=== PATIENT | female | born 1985 | race Caucasian/White ===

== ENCOUNTER → 2016-10-30 | Outpatient (CLI) | payer BC, OTHER | LOC: OD 11:00 | PROVIDERS: ATTEND Obstetrics & Gynecology | DX: N97.9 Female infertility, unspecified (principal) | CPT/HCPCS: 36415; 84144 ==

== ENCOUNTER → 2017-03-19 | Outpatient (CLI) | payer BC ==
--- NOTE | 2017-03-19 10:27 | RADIOLOGY REPORT (SQ) ---
EXAM DESCRIPTION: HYSTEROSALPINGOGRAM; HYSTERO CATH/INJECTION COMPLETED DATE/TIME: 03/19/2017 9:50 am REASON FOR STUDY: INFERTILITY N97.9 FEMALE INFERTILITY, UNSPECIFIED COMPARISON: None. PROCEDURE: PRE-PROCEDURE: Procedure was explained to the patient. She was told to expect cramping du ring the procedure, and possible spotting post procedure. PROCEDURE: The cervix was prepped in sterile fashion. Under direct visual inspection, the cervix was cannulated with the hysterosalpingogram catheter and contrast injected. TECHNIQUE: Temporal fluoroscopic images acquired during the procedure stored to PACS. FLUOROSCOPY TIME: Less than 2 seconds 9 digital radiographic images saved to PACS. LIMITATIONS: None. FINDINGS: UTERUS: No identified anomalies. No synechia. RIGHT ADNEXA: Normal size fallopian tube. Free spill of contrast into the peritoneal cavity. LEFT ADNEXA: Normal size fallopian tube. Free spill of contrast into the peritoneal cavity. POST PROCEDURE: The patient tolerated the procedure with no adverse effects. IMPRESSION: NORMAL HYSTEROSALPINGOGRAM. COMMENT: Quality ID [id number]: Final reports for procedures using fluoroscopy that document radiation exp osure indices, or exposure time and number of fluorographic images (if radiation exposure indices are not available) TECHNICAL DOCUMENTATION: JOB ID: [id number] [employer]- All Rights Reserved
== END ==
LOC: RAD 09:17
PROVIDERS: ATTEND Nurse Practitioner Primary Care
DX: N97.9 Female infertility, unspecified (principal)
CPT/HCPCS: 58340; 74740

== ENCOUNTER → 2017-05-03 | Outpatient (CLI) | payer BC | LOC: OD 09:03 | PROVIDERS: ATTEND Nurse Practitioner Primary Care | DX: Z31.83 Encounter for assisted reproductive fertility procedure cycle (principal) | CPT/HCPCS: 36415; 84702 ==

== ENCOUNTER → 2017-07-05 | Outpatient (CLI) | payer BC ==
[2017-07-06 13:45] LABS: ESTRADIOL 303.9 pg/mL (.); PROGESTERONE 16.1 ng/mL (.)
== END ==
LOC: OD 11:55
PROVIDERS: ATTEND Nurse Practitioner Primary Care
DX: Z32.00 Encounter for pregnancy test, result unknown (principal)
CPT/HCPCS: 36415; 82670; 84144; 84702

== ENCOUNTER → 2017-07-09 | Outpatient (CLI) | payer BC | LOC: OD 10:31 | PROVIDERS: ATTEND Obstetrics & Gynecology | DX: N91.2 Amenorrhea, unspecified (principal) | CPT/HCPCS: 36415; 84702 ==

== ENCOUNTER 2018-02-09 10:44 | Outpatient (CLI) | payer BC ==
--- NOTE | 2018-02-09 11:42 | Non Stress Test Report ---
Non Stress Test Datetime Report Generated by CPN: 02/09/2018 11:42 DEMOGRAPHIC EGA NST: 36.0 INDICATION Indication for Study: Diabetes Mellitus; Chronic Hypertension VITAL SIGNS Temperature - NST: 98.7 Pulse - NST: 90 RESP - NST: 18 NBPSYS NST: 124 NBPDIA NST: 70 MONITORING Monitor Explained: Monitor Explained; Test Explained; Patient Verbalized Understanding Time on Monitor: 02/09/2018 10:55 Time off Monitor: 02/09/2018 11:35 NST Duration: 40 NST INTERVENTIONS NST Interventions: PO Hydration Physician Notified NST: H [place] CNM BABY A: [id number] BABY A Movement : Present Contraction Frequency : none FHR Baseline : 135 Accelerations : 15X15 Decelerations : None Variability : Moderate 6-25bpm NST Review: Meets Criteria for Reactive NST NST Review and Verified By : John Scott RNC NST Results: Reactive NST REPORT Report Trigger: Send Report
== END 2018-02-09 11:42 | disposition home or self-care (01) ==
LOC: LC 10:44
PROVIDERS: ATTEND Obstetrics & Gynecology Gynecology
PROC: 4A1HXCZ Monitoring of Products of Conception, Cardiac Rate, External Approach (ICD-10-PCS; principal; 2018-02-09)
DX: O10.913 Unspecified pre-existing hypertension complicating pregnancy, third trimester (principal); O24.419 Gestational diabetes mellitus in pregnancy, unspecified control; Z3A.36 36 weeks gestation of pregnancy
CPT/HCPCS: 59025

== ENCOUNTER 2018-02-18 12:02 | Outpatient (CLI) | payer BC ==
[2018-02-18 13:05] LABS: APPEARANCE,URINE CLEAR; BILIRUBIN,URINE NEGATIVE (NEGATIVE); COLOR,URINE STRAW; GLUCOSE, URINE NEGATIVE (NEGATIVE); KETONES,URINE NEGATIVE (NEGATIVE); LEUKOCYTE ESTERASE,URINE NEGATIVE (NEGATIVE); NITRITE,URINE NEGATIVE (NEGATIVE); PROTEIN,URINE NEGATIVE (NEGATIVE); URINE SPECIFIC GRAVITY 1.003; UROBILINOGEN,URINE NEGATIVE mg/dL (<2.0)
[2018-02-18 13:31] LABS: URINE CREATININE 13.9 mg/dL (16-327); URINE PROTEIN 13.8 mg/dL (<12)
[2018-02-18 13:43] LABS: URINE AMPHETAMINES SCREEN NEGATIVE; URINE BARBITURATES SCREEN NEGATIVE; URINE BENZODIAZEPINES SCREEN NEGATIVE; URINE COCAINE SCREEN NEGATIVE; URINE MARIJUANA (THC) SCREEN NEGATIVE; URINE METHADONE SCREEN NEGATIVE; URINE PHENCYCLIDINE SCREEN NEGATIVE
--- NOTE | 2018-02-18 13:51 | Non Stress Test Report ---
Non Stress Test Datetime Report Generated by CPN: 02/18/2018 13:51 DEMOGRAPHIC EGA NST: 37.2 INDICATION Indication for Study: Chronic Hypertension MONITORING Monitor Explained: Monitor Explained; Test Explained; Patient Verbalized Understanding Time on Monitor: 02/18/2018 12:39 NST INTERVENTIONS NST Interventions: PO Hydration Physician Notified NST: Dr. Catherine BABY A: [id number] BABY A Movement : Present Contraction Frequency : 0 FHR Baseline : 135 Accelerations : 15X15 Decelerations : None Variability : Moderate 6-25bpm NST Review: Meets Criteria for Reactive NST NST Review and Verified By : D Bellavance RNC NST REPORT Report Trigger: Send Report
[2018-02-18 13:53] LABS: ABSOLUTE LYMPHOCYTES (AUTO) 1.4 10^3/uL (0.5-4.7); ABSOLUTE MONOCYTES (AUTO) 0.7 10^3/uL (0.1-1.4); BASOPHILS % (AUTO) 0.2 % (0-2); EOSINOPHILS % (AUTO) 0.4 % (0-6); HEMATOCRIT 36.3 % (36.0-47.0); HEMOGLOBIN 12.2 g/dL (12.0-15.5); MEAN CORPUSCULAR HEMOGLOBIN 28.1 pg (27.0-33.4); MEAN CORPUSCULAR HGB CONC 33.5 g/dL (32.0-36.0); MEAN CORPUSCULAR VOLUME 84 fl (80-97); MONOCYTES % (AUTO) 7.1 % (3-13); PLATELET COUNT 184 10^3/uL (150-450); RED BLOOD COUNT 4.33 10^6/uL (3.72-5.28); RED CELL DISTRIBUTION WIDTH 17.6 % (11.5-14.0); SEGMENTED NEUTROPHILS % (AUTO) 78.3 % (42-78); TOTAL CELLS COUNTED % (AUTO) 100 %; WHITE BLOOD COUNT 10.3 10^3/uL (4.0-10.5)
[2018-02-18 14:29] LABS: ALANINE AMINOTRANSFERASE 24 U/L (9-52); ALBUMIN 3.2 g/dL (3.5-5.0); ALKALINE PHOSPHATASE 126 U/L (38-126); ANION GAP 10 (5-19); ASPARTATE AMINO TRANSFERASE 14 U/L (14-36); BLOOD UREA NITROGEN 10 mg/dL (7-20); CALCIUM 9.6 mg/dL (8.4-10.2); CARBON DIOXIDE 24 mmol/L (22-30); CHLORIDE 107 mmol/L (98-107); GLUCOSE 69 mg/dL (75-110); LDH 352 U/L (313-618); POTASSIUM 4.5 mmol/L (3.6-5.0); SODIUM 140.7 mmol/L (137-145); TOTAL PROTEIN 6.2 g/dL (6.3-8.2)
[2018-02-18 14:36] LABS: BILIRUBIN,TOTAL < 0.1 mg/dL (0.2-1.3)
== END 2018-02-18 14:45 | disposition home or self-care (01) ==
LOC: LC 12:02
PROVIDERS: ATTEND Student in an Organized Health Care Education/Training Program
PROC: 4A1HXCZ Monitoring of Products of Conception, Cardiac Rate, External Approach (ICD-10-PCS; principal; 2018-02-18)
DX: O10.913 Unspecified pre-existing hypertension complicating pregnancy, third trimester (principal); Z3A.37 37 weeks gestation of pregnancy
CPT/HCPCS: 36415; 59025; 80053; 80307; 81005; 82570; 83615; 84156; 84550; 85025

== ENCOUNTER → 2018-02-19 | Outpatient (CLI) | payer BC ==
[2018-02-19 18:26] LABS: 24 HOUR URINE PROTEIN RESULT 241 mg/day (42-225); URINE PROTEIN 10.4 mg/dL (<12)
== END ==
LOC: LC 17:38
PROVIDERS: ATTEND Obstetrics & Gynecology
PROC: 4A1HXCZ Monitoring of Products of Conception, Cardiac Rate, External Approach (ICD-10-PCS; principal; 2018-02-19)
DX: O10.913 Unspecified pre-existing hypertension complicating pregnancy, third trimester (principal); O24.419 Gestational diabetes mellitus in pregnancy, unspecified control; Z3A.37 37 weeks gestation of pregnancy
CPT/HCPCS: 59025; 84156

== ENCOUNTER 2018-02-21 17:14 | Outpatient (CLI) | payer BC ==
[2018-02-21 18:08] LABS: APPEARANCE,URINE CLEAR; BILIRUBIN,URINE NEGATIVE (NEGATIVE); COLOR,URINE STRAW; GLUCOSE, URINE NEGATIVE (NEGATIVE); KETONES,URINE TRACE mg/dL (NEGATIVE); LEUKOCYTE ESTERASE,URINE NEGATIVE (NEGATIVE); NITRITE,URINE NEGATIVE (NEGATIVE); PROTEIN,URINE NEGATIVE (NEGATIVE); URINE SPECIFIC GRAVITY 1.006; UROBILINOGEN,URINE NEGATIVE mg/dL (<2.0)
[2018-02-21 18:23] LABS: URINE AMPHETAMINES SCREEN NEGATIVE; URINE BARBITURATES SCREEN NEGATIVE; URINE BENZODIAZEPINES SCREEN NEGATIVE; URINE COCAINE SCREEN NEGATIVE; URINE MARIJUANA (THC) SCREEN NEGATIVE; URINE METHADONE SCREEN NEGATIVE; URINE PHENCYCLIDINE SCREEN NEGATIVE
[2018-02-21 18:25] LABS: UR PRO/CREAT RATIO RESULT 0.5 mg/mg (0.0-0.2); URINE CREATININE 27.5 mg/dL (16-327); URINE PROTEIN 13.1 mg/dL (<12)
[2018-02-21 18:34] LABS: ABSOLUTE MONOCYTES (AUTO) 0.8 10^3/uL (0.1-1.4); ABSOLUTE NEUT (AUTO) 8.5 10^3/uL (1.7-8.2); BASOPHILS % (AUTO) 0.2 % (0-2); EOSINOPHILS % (AUTO) 0.3 % (0-6); HEMOGLOBIN 12.3 g/dL (12.0-15.5); LYMPHOCYTES % (AUTO) 17.7 % (13-45); MEAN CORPUSCULAR HEMOGLOBIN 28.1 pg (27.0-33.4); MEAN CORPUSCULAR HGB CONC 33.3 g/dL (32.0-36.0); MEAN CORPUSCULAR VOLUME 85 fl (80-97); MONOCYTES % (AUTO) 7.1 % (3-13); PLATELET COUNT 199 10^3/uL (150-450); RED BLOOD COUNT 4.38 10^6/uL (3.72-5.28); RED CELL DISTRIBUTION WIDTH 17.9 % (11.5-14.0); SEGMENTED NEUTROPHILS % (AUTO) 74.7 % (42-78); TOTAL CELLS COUNTED % (AUTO) 100 %; WHITE BLOOD COUNT 11.3 10^3/uL (4.0-10.5)
[2018-02-21 18:53] LABS: ALANINE AMINOTRANSFERASE 23 U/L (9-52); ALBUMIN 3.4 g/dL (3.5-5.0); ALKALINE PHOSPHATASE 137 U/L (38-126); ANION GAP 12 (5-19); ASPARTATE AMINO TRANSFERASE 14 U/L (14-36); BILIRUBIN,DIRECT 0.2 mg/dL (0.0-0.4); BILIRUBIN,TOTAL 0.2 mg/dL (0.2-1.3); BLOOD UREA NITROGEN 9 mg/dL (7-20); CALCIUM 9.5 mg/dL (8.4-10.2); CARBON DIOXIDE 21 mmol/L (22-30); CHLORIDE 106 mmol/L (98-107); GLUCOSE 68 mg/dL (75-110); LDH 357 U/L (313-618); POTASSIUM 4.2 mmol/L (3.6-5.0); SODIUM 138.6 mmol/L (137-145); TOTAL PROTEIN 6.2 g/dL (6.3-8.2); URIC ACID 5.3 mg/dL (2.5-6.2)
--- NOTE | 2018-02-21 19:46 | Non Stress Test Report ---
Non Stress Test Datetime Report Generated by CPN: 02/21/2018 19:46 DEMOGRAPHIC EGA NST: 37.5 EGA NST: 37.3 INDICATION Indication for Study: Chronic Hypertension; Ordered by Provider Indication for Study: Ordered by Provider MONITORING Monitor Explained: Monitor Explained; Test Explained; Patient Verbalized Understanding Monitor Explained: Monitor Explained; Test Explained; Patient Verbalized Understanding Time on Monitor: 02/21/2018 17:41 Time on Monitor: 02/19/2018 17:55 Time off Monitor: 02/21/2018 19:34 Time off Monitor: 02/19/2018 18:32 NST Duration: 113 NST Duration: 37 NST INTERVENTIONS NST Interventions: PO Hydration; Reposition Patient NST Interventions: PO Hydration Physician Notified NST: Dr. Prather BABY A: [id number] BABY A Movement : Present Movement : Present Contraction Frequency : none Contraction Frequency : none FHR Baseline : 130 FHR Baseline : 135 Accelerations : 15X15 Accelerations : 15X15 Decelerations : None Variability : Moderate 6-25bpm Variability : Moderate 6-25bpm NST Review: Meets Criteria for Reactive NST NST Review: Meets Criteria for Reactive NST NST Review: Meets Criteria for Reactive NST NST Review and Verified By : Pushpa Ann RN NST Review and Verified By : Jamal Garcia RN NST Results: Reactive NST Results: Reactive NST REPORT Report Trigger: Send Report
== END 2018-02-21 19:41 | disposition home or self-care (01) ==
LOC: LC 17:14
PROVIDERS: ATTEND Obstetrics & Gynecology Gynecology
PROC: 4A1HXCZ Monitoring of Products of Conception, Cardiac Rate, External Approach (ICD-10-PCS; principal; 2018-02-21)
DX: O10.913 Unspecified pre-existing hypertension complicating pregnancy, third trimester (principal); Z3A.37 37 weeks gestation of pregnancy
CPT/HCPCS: 36415; 59025; 80053; 80307; 81001; 82570; 83615; 84156; 84550; 85025

== ENCOUNTER 2018-02-24 17:52 | Inpatient (IN) | payer BC ==
[2018-02-24] MEDS ORDERED: RINGERS SOLUTION,LACTATED 1,000 ML IV PRN (18:25)
[2018-02-24] MEDS ORDERED: RINGERS SOLUTION,LACTATED 300 ML IV ONE (18:25)
[2018-02-24 18:35] LABS: ABSOLUTE LYMPHOCYTES (AUTO) 1.7 10^3/uL (0.5-4.7); ABSOLUTE MONOCYTES (AUTO) 0.8 10^3/uL (0.1-1.4); BASOPHILS % (AUTO) 0.3 % (0-2); EOSINOPHILS % (AUTO) 0.3 % (0-6); HEMATOCRIT 36.8 % (36.0-47.0); HEMOGLOBIN 12.3 g/dL (12.0-15.5); LYMPHOCYTES % (AUTO) 14.8 % (13-45); MEAN CORPUSCULAR HGB CONC 33.4 g/dL (32.0-36.0); MEAN CORPUSCULAR VOLUME 84 fl (80-97); MONOCYTES % (AUTO) 6.9 % (3-13); PLATELET COUNT 210 10^3/uL (150-450); RED BLOOD COUNT 4.39 10^6/uL (3.72-5.28); RED CELL DISTRIBUTION WIDTH 17.7 % (11.5-14.0); SEGMENTED NEUTROPHILS % (AUTO) 77.7 % (42-78); TOTAL CELLS COUNTED % (AUTO) 100 %; WHITE BLOOD COUNT 11.6 10^3/uL (4.0-10.5)
[2018-02-24 18:36] LABS: APPEARANCE,URINE CLEAR; BILIRUBIN,URINE NEGATIVE (NEGATIVE); COLOR,URINE YELLOW; GLUCOSE, URINE NEGATIVE (NEGATIVE); KETONES,URINE TRACE mg/dL (NEGATIVE); LEUKOCYTE ESTERASE,URINE NEGATIVE (NEGATIVE); NITRITE,URINE NEGATIVE (NEGATIVE); PROTEIN,URINE NEGATIVE (NEGATIVE); URINE SPECIFIC GRAVITY 1.014; UROBILINOGEN,URINE NEGATIVE mg/dL (<2.0)
[2018-02-24] MEDS ORDERED: DINOPROSTONE 10 MG VAGINAL INSERT.SR ONE (18:48)
[2018-02-24 18:51] LABS: URINE AMPHETAMINES SCREEN NEGATIVE; URINE BARBITURATES SCREEN NEGATIVE; URINE BENZODIAZEPINES SCREEN NEGATIVE; URINE COCAINE SCREEN NEGATIVE; URINE MARIJUANA (THC) SCREEN NEGATIVE; URINE METHADONE SCREEN NEGATIVE; URINE PHENCYCLIDINE SCREEN NEGATIVE
[2018-02-24 18:54] LABS: ALANINE AMINOTRANSFERASE 17 U/L (9-52); ALBUMIN 3.5 g/dL (3.5-5.0); ALKALINE PHOSPHATASE 138 U/L (38-126); ANION GAP 11 (5-19); ASPARTATE AMINO TRANSFERASE 15 U/L (14-36); BILIRUBIN,DIRECT 0.1 mg/dL (0.0-0.4); BILIRUBIN,TOTAL 0.1 mg/dL (0.2-1.3); BLOOD UREA NITROGEN 15 mg/dL (7-20); CALCIUM 10.2 mg/dL (8.4-10.2); CARBON DIOXIDE 22 mmol/L (22-30); CHLORIDE 107 mmol/L (98-107); GLUCOSE 105 mg/dL (75-110); LDH 354 U/L (313-618); POTASSIUM 4.4 mmol/L (3.6-5.0); SODIUM 139.6 mmol/L (137-145); TOTAL PROTEIN 6.6 g/dL (6.3-8.2); URIC ACID 5.6 mg/dL (2.5-6.2)
[2018-02-24] MEDS: DINOPROSTONE 10 MG VAGINAL INSERT.SR PV PRN (18:58)
[2018-02-24] MEDS ORDERED: ZOLPIDEM TARTRATE 5 MG TABLET PO ONE (22:32)
[2018-02-24] MEDS ORDERED: ZOLPIDEM TARTRATE 5 MG TABLET ONE (22:35)
--- NOTE | 2018-02-25 01:26 | Admission Physical ---
Datetime Report Generated by CPN: 02/25/2018 01:26 CURRENT ADMISSION Chief Complaint: Scheduled Induction of Labor Indication for Induction: Gestational HTN; Maternal Diabetes Admit Impression : Term, Intrauterine ; Induction of Labor Admit Plan: Admit to Unit; Initiate Labor Induction Protocol ALLERGIES Medication Allergies: Yes Medication Allergies: aspirin (02/24/2018) Latex: No Latex Allergies Food Allergies: N/A Environmental Allergies: N/A OBSTETRICAL HISTORY EDC: 03/09/2018 00:00 : 1 Para: 0 Term: 0 : 0 SAB: 0 IAB: 0 Ectopic: 0 Livin Cesareans: 0 VBACs: 0 Multiple Births: 0 Gestational Diabetes: Yes Rh Sensitization: No Incompetent Cervix: No CHITO: No Infertility: Yes ART Treatment: Yes Uterine Anomaly: No IUGR: No Hx Previous C/S: No Macrosomia: No Hx Loss/Stillborn: No PIH: No Hx : No Placenta Previa/Abruption: No Depression/PP Depression: No PTL/PROM: No Post Hemorrhage: No Current Procedures: Ultrasound; NST Obstetrical History Comments: G1- current: GDM metformin GHTN on labatelol. Infertility clomid, IUI SEE RECORDS Alcohol: No Marijuana : No Cocaine: No Other Illicit Drugs: No Cigarettes: Never Smoker. [id number] MEDICAL HISTORY Diabetes: No Blood Transfusion: No Pulmonary Disease (Asthma, TB): No Breast Disease: No Hypertension: Yes Mechanic Helper Surgery: Yes Heart Disease: No Hosp/Surgery: No Autoimmune Disorder: No Anesthetic Complications: Yes Kidney Disease: No Abnormal Pap Smear: No Neuro/Epilepsy: No Psychiatric Disorders: Yes Other Medical Diseases: No Hepatitis/Liver Disease: No Significant Family History: No Varicosities/Phlebitis: No Trauma/Violence : No Thyroid Dysfunction: No Medical History Comments: hormones premenstrual disorder, mild anxiety. Pt. states that she was awake during colonoscopy and endoscopy after getting propofol. Failed IUI, IVF= thispregnancy not a result of INFECTIOUS HISTORY Gonorrhea: No Genital Herpes: No Chlamydia: No Tuberculosis: No Syphilis: No Hepatitis: No HIV/AIDS Exposure: No Rash or Viral Illness: No HPV: No PHYSICAL EXAM General: Normal HEENT: Normal Neurologic: Normal Thyroid: Normal Heart: Normal Lungs: Normal Breast: Deferred Back: Normal Abdomen: Normal Genitourinary Exam: Normal Extremities: Normal DTRs: Normal Pelvic Type: Adequate Vital Signs: Reviewed VAGINAL EXAM Dilatation: 1 Effacement: thick MEMBRANES Pooling: Negative Membranes: Intact FETUS A EGA: 38.2 Monitoring: External US FHR- Baseline: 130 Variability: Moderate 6-25bpm Accelerations: 15X15 Decelerations: None FHR Category: Category I Presentation: Vertex Admit Comment: efw 6-7 lbs PLANS FOR LABOR AND DELIVERY Labor and Delivery: None Pain Management: Natural Other Pain Management Plans: see how it goes Feeding Preference: Breast Benefit of Breast Feed Discussed: Yes Circumcision: Yes INFORMED CONSENT Signature: with User ID: [email or web address]
[2018-02-25] MEDS ORDERED: DIPHENHYDRAMINE HCL 25 MG CAPSULE ONE (01:38)
[2018-02-25] MEDS ORDERED: DIPHENHYDRAMINE HCL 50 MG CAPSULE PO ONE (01:39)
[2018-02-25] MEDS ORDERED: MISOPROSTOL 0.1 MG TABLET PO ONE (08:18)
[2018-02-25] MEDS ORDERED: MISOPROSTOL 0.1 MG TABLET ONE ×3 (08:23→16:32)
[2018-02-25] MEDS ORDERED: MISOPROSTOL 0.1 MG TABLET PV ONE (08:30)
--- NOTE | 2018-02-25 09:58 | L&D Progress Notes ---
PROGRESS NOTES Datetime Report Generated by CPN: 02/25/2018 09:58 PROGRESS NOTE Impression: Reassuring Heart Rate Plan: Continue Present Management; Cervical Ripening Vital Signs : Reviewed Comment: Sitting on bith ball, starting to feel uc's, CAt 1 strip, Irreg uc's VAGINAL EXAM Dilatation: 1 Effacement: thick MEMBRANES Pooling: Negative Membranes: Intact Membranes: Intact FETUS A Monitoring: External US Decelerations: None : 38.0 Presentation: Vertex SIGNATURE SIGNATURE: [id number] SIGNATURE: [id number] SIGNATURE: [id number] SIGNATURE: [id number] SIGNATURE: [id number] Assignment: Sha Prather MD Signature: with User ID: [email or web address] : with User ID: [email or web address]
[2018-02-25 11:39] LABS: ALANINE AMINOTRANSFERASE 23 U/L (9-52); ALBUMIN 3.6 g/dL (3.5-5.0); ALKALINE PHOSPHATASE 136 U/L (38-126); ANION GAP 10 (5-19); ASPARTATE AMINO TRANSFERASE 15 U/L (14-36); BILIRUBIN,DIRECT 0.1 mg/dL (0.0-0.4); BILIRUBIN,TOTAL 0.2 mg/dL (0.2-1.3); BLOOD UREA NITROGEN 11 mg/dL (7-20); CALCIUM 9.6 mg/dL (8.4-10.2); CARBON DIOXIDE 23 mmol/L (22-30); CHLORIDE 107 mmol/L (98-107); GLUCOSE 93 mg/dL (75-110); LDH 371 U/L (313-618); POTASSIUM 4.3 mmol/L (3.6-5.0); SODIUM 140.1 mmol/L (137-145); TOTAL PROTEIN 6.7 g/dL (6.3-8.2)
[2018-02-25] MEDS: MISOPROSTOL 0.1 MG TABLET PO SCH ×2 (12:40→18:08)
--- NOTE | 2018-02-25 13:59 | L&D Progress Notes ---
PROGRESS NOTES Datetime Report Generated by CPN: 02/25/2018 13:59 PROGRESS NOTE Impression: Reassuring Heart Rate Plan: Continue Present Management; Cervical Ripening Vital Signs : Reviewed; Within Normal Limits Comment: Cat 1 strip, irreg uc's FETUS A FHR - Baseline: 150 Monitoring: External US Variability: Moderate 6-25bpm Accelerations: 15X15 Decelerations: None FHR Category: Category I FETUS C SIGNATURE: [id number];[id number];10,[id number] Assignment: Sha Prather MD Signature: with User ID: Sandra : with User ID: Sandra
[2018-02-25] MEDS ORDERED: MISOPROSTOL 0.2 MG TABLET PV SCH (14:00)
--- NOTE | 2018-02-25 14:31 | L&D Progress Notes ---
PROGRESS NOTES Datetime Report Generated by CPN: 02/25/2018 14:31 PROGRESS NOTE Impression: Reassuring Heart Rate Procedures: Sterile Vag Exam Vital Signs : Reviewed; Within Normal Limits Comment: Pt called and said she thought her water broke, cervix unchanged, scant bloody show, Irreg uc's, pt anxious, trying to relax, Cat 1 strip FETUS A Monitoring: External US FHR Category: Category I FETUS C SIGNATURE: [id number] Assignment: Sha Prather MD Signature: with User ID: Sandra : with User ID: Sandra
[2018-02-25] MEDS ORDERED: OXYTOCIN/NORMAL SALINE 20 UNIT/1,000 ML RTUINJ IV PRN (17:40)
[2018-02-25] MEDS ORDERED: OXYTOCIN/NORMAL SALINE 20 UNIT/1,000 ML RTUINJ ONE (17:54)
[2018-02-25] MEDS ORDERED: NALBUPHINE HCL INJ 10 MG/1 ML AMPULE INJ ONE (18:02)
[2018-02-25] MEDS ORDERED: PROMETHAZINE HCL INJ 25 MG/1 ML VIAL IV PRN (18:02)
[2018-02-25] MEDS ORDERED: PROMETHAZINE HCL INJ 25 MG/1 ML VIAL ONE (18:06)
[2018-02-25] MEDS ORDERED: NALBUPHINE HCL INJ 10 MG/1 ML AMPULE ONE (18:07)
[2018-02-25] MEDS: DINOPROSTONE 10 MG VAGINAL INSERT.SR PV PRN (18:08)
[2018-02-25] MEDS ORDERED: LABETALOL HCL 200 MG TABLET ONE (20:08)
[2018-02-25] MEDS ORDERED: FENTANYL CITRATE INJ/PF 100 MCG/2 ML AMPUL ONE (21:35)
[2018-02-25 21:36] LABS: ABSOLUTE LYMPHOCYTES (AUTO) 1.9 10^3/uL (0.5-4.7); ABSOLUTE MONOCYTES (AUTO) 1.1 10^3/uL (0.1-1.4); ABSOLUTE NEUT (AUTO) 11.8 10^3/uL (1.7-8.2); BASOPHILS % (AUTO) 0.2 % (0-2); EOSINOPHILS % (AUTO) 0.1 % (0-6); HEMATOCRIT 38.3 % (36.0-47.0); HEMOGLOBIN 12.7 g/dL (12.0-15.5); LYMPHOCYTES % (AUTO) 12.9 % (13-45); MEAN CORPUSCULAR HEMOGLOBIN 27.9 pg (27.0-33.4); MEAN CORPUSCULAR HGB CONC 33.2 g/dL (32.0-36.0); MEAN CORPUSCULAR VOLUME 84 fl (80-97); MONOCYTES % (AUTO) 7.2 % (3-13); PLATELET COUNT 197 10^3/uL (150-450); RED BLOOD COUNT 4.55 10^6/uL (3.72-5.28); RED CELL DISTRIBUTION WIDTH 17.6 % (11.5-14.0); SEGMENTED NEUTROPHILS % (AUTO) 79.6 % (42-78); TOTAL CELLS COUNTED % (AUTO) 100 %; WHITE BLOOD COUNT 14.8 10^3/uL (4.0-10.5)
[2018-02-25] MEDS ORDERED: PHENYLEPHRINE HCL INJ/PF 10 MG/1 ML SDV ONE (21:36)
[2018-02-25] MEDS ORDERED: EPHEDRINE SULFATE INJ 50 MG/1 ML AMPULE ONE (21:36)
[2018-02-25] MEDS ORDERED: LIDOCAINE 1.5%/EPINEPHRINE INJ-PF 30 ML SDV ONE (21:36)
[2018-02-25] MEDS ORDERED: BUPIVACAINE HCL 0.25 % INJ/PF (2.5 MG/1 ML) 30 ML VIAL ONE (21:36)
[2018-02-25] MEDS ORDERED: FENTANYL/BUPIVACAINE/NS/PF 300 MCG/150 ML RTUINJ EPI ONE (21:36)
[2018-02-25] MEDS ORDERED: LABETALOL HCL 200 MG TABLET PO SCH (22:00)
[2018-02-25 22:01] LABS: ALANINE AMINOTRANSFERASE 29 U/L (9-52); ALBUMIN 3.4 g/dL (3.5-5.0); ALKALINE PHOSPHATASE 144 U/L (38-126); ANION GAP 11 (5-19); ASPARTATE AMINO TRANSFERASE 15 U/L (14-36); BILIRUBIN,DIRECT 0.2 mg/dL (0.0-0.4); BILIRUBIN,TOTAL 0.3 mg/dL (0.2-1.3); BLOOD UREA NITROGEN 11 mg/dL (7-20); CALCIUM 9.4 mg/dL (8.4-10.2); CARBON DIOXIDE 23 mmol/L (22-30); CHLORIDE 106 mmol/L (98-107); GLUCOSE 79 mg/dL (75-110); SODIUM 139.6 mmol/L (137-145); TOTAL PROTEIN 6.4 g/dL (6.3-8.2)
[2018-02-26] MEDS ORDERED: OXYTOCIN/NORMAL SALINE 0 UNIT/0 ML RTUINJ ONE (01:59)
[2018-02-26] MEDS ORDERED: MISOPROSTOL 0.2 MG TABLET ONE (01:59)
[2018-02-26] MEDS ORDERED: LIDOCAINE 1% INJ-PF (10 MG/ML) 30 ML SDV ONE (01:59)
[2018-02-26] MEDS ORDERED: DIBUCAINE 1% OINTMENT 28 GM TP PRN (03:21)
[2018-02-26] MEDS ORDERED: PROMETHAZINE HCL INJ 25 MG/1 ML VIAL IV PRN (03:21)
[2018-02-26] MEDS ORDERED: PROMETHAZINE HCL 25 MG TABLET PO PRN (03:21)
[2018-02-26] MEDS ORDERED: BENZOCAINE/MENTHOL AEROSOL SPRAY 56 ML TOP PRN (03:21)
[2018-02-26] MEDS ORDERED: MAGNESIUM HYDROXIDE SUSP 30 ML UDCUP PO PRN (03:21)
[2018-02-26] MEDS ORDERED: ZOLPIDEM TARTRATE 5 MG TABLET PO PRN (03:21)
[2018-02-26] MEDS ORDERED: PSEUDOEPHEDRINE HCL 30 MG TABLET PO PRN (03:21)
[2018-02-26] MEDS ORDERED: GLYCERIN/WITCH HAZEL LEAF 1 EACH MED..PAD TP PRN (03:21)
[2018-02-26] MEDS ORDERED: ACETAMINOPHEN WITH CODEINE #3 TABLET PO PRN (03:21)
[2018-02-26] MEDS ORDERED: PROMETHAZINE HCL 25 MG SUPP.RECT PR PRN (03:21)
[2018-02-26] MEDS ORDERED: NA PHOS,M-B/NA PHOS,DI-BA (ADULT) 133 ML ENEMA PR PRN (03:21)
[2018-02-26] MEDS ORDERED: ACETAMINOPHEN 650 MG SUPP.RECT PR PRN (03:21)
[2018-02-26] MEDS ORDERED: OXYTOCIN/NORMAL SALINE 20 UNIT/1,000 ML RTUINJ IV PRN (03:21)
[2018-02-26] MEDS ORDERED: DIPH/PERTUSS(ACELL)/TETANUS VAC/PF 0.5 ML SYR (>=10YO) IM PRN (03:21)
[2018-02-26] MEDS ORDERED: MEASLES,MUMPS&RUBELLA VACC/PF 0.5 ML VIAL SUBCUT PRN (03:21)
[2018-02-26] MEDS ORDERED: DIPHENHYDRAMINE HCL 25 MG CAPSULE PO PRN (03:21)
--- NOTE | 2018-02-26 03:25 | PDOC DELIVERY SUMMARY ---
Delivery Summary - Maternal Risk Factors: Gestational Diabetes, Induced HTN Fluids: Clear - Delivery Labor: Augmentation Presentation: Vertex Uterine Contraction Monitoring: External Support Person Present: Yes Nuchal Cord: Yes - shoulder Delivery of Placenta Date: 02/26/18 - Medications Type of Anesthesia:: Epidural
--- NOTE | 2018-02-26 03:35 | Warning Signs in Babies ---
VOD Warning Signs Datetime Report Generated by [facility]: 02/26/2018 03:35 VOD#608 -Warning Signs in Babies: Needs to be viewed. (02/09/2018 11:08:Afshan Vaughan RN)
--- NOTE | 2018-02-26 04:41 | Delivery Summary ---
Del Sum A-C Datetime Report Generated by CPN: 02/26/2018 04:41 DELIVERY PERSONNEL DELIVERY PERSONNEL: [id number] Delivery Doctor:: Sha Prather MD Labor and Delivery Nurse:: Afshan Vaughan RNhealth advocate Nurse:: Claudia Farrell RN Supervisor Filtration:: Chelo Triplett RN Nursery Nurse:: Angelique Martins RN Nursery Nurse:: anthony Taylor Tech/TECHNICIAN BIOLOGICAL HEALTH: July Burgos, ST MATERNAL INFORMATION Delivery Anesthesia: Epidural Medications After Delivery: Pitocin Bolus-Please Comment; Pitocin Drip 20 Units/1000ml NSS Meds After Delivery Comment: ns with pitocin 20 units/liter ivf Maternal Complications: Other Complication Details: CHTN, GDMA2 LABOR SUMMARY EDC: 03/09/2018 00:00 No. Babies in Womb: 1 Attempted: No Labor Anesthesia: Epidural LABOR INFORMATION Reason for Induction: Chronic Primary/Essential HTN; Maternal Diabetes Onset of Labor: 02/25/2018 16:40 Complete Dilatation: 02/26/2018 02:32 Cervical Ripening Agents: Cervidil; Cytotec @ Oxytocin: Induction Group B Beta Strep: Negative Antibiotics # of Doses: 0 Antibiotics Time of Last Dose: n/a Steroids Given: None Reason Steroids Not Administered: Not Applicable MEMBRANES Membranes Rupture Method: Spontaneous Rupture of Membranes: 02/25/2018 16:40 Length of Rupture (hr): 10.50 Amniotic Fluid Color: Clear Amniotic Fluid Amount: Small Amniotic Fluid Odor: Normal STAGES OF LABOR Stage 1 hr: 9 Stage 1 min: 52 Stage 2 hr: 0 Stage 2 min: 38 Stage 3 hr: 0 Stage 3 min: 3 Total Time in Labor hr: 10 Total Time in Labor min: 33 VAGINAL DELIVERY Episiotomy: None Laceration #1: None Laceration Extension #1: N/A Laceration Repair: Not Applicable Sponge Count Correct: N/A Sharps Count Correct: N/A CSECTION DELIVERY Primary Indication: N/A Secondary Indication: N/A CSection Incision: N/A BABY A INFORMATION Infant Delivery Date/Time: 02/26/2018 03:10 Method of Delivery: Vaginal Born in Route : No : N/A Forceps: N/A Vacuum Extraction: N/A Shoulder Dystocia : No PRESENTATION/POSITION BABY A Presentation: Cephalic Cephalic Presentation: Vertex Vertex Position: Right Occipital Anterior Breech Presentation: N/A PLACENTA INFORMATION BABY A Placenta Delivery Time : 02/26/2018 03:13 Placenta Method of Delivery: Spontaneous Placenta Status: Delivered SCORES BABY A Heart Rate 1 min: >100 bpm Resp Effort 1 min: Good Cry Reflex Irritability 1 min: Cough or Sneeze or Pulls Away Muscle Tone 1 min: Active Motion Color 1 min: Blue/Pale Resuscitation Effort 1 min: Tactile Stimulation SCORE 1 MIN: 8 Heart Rate 5 min: >100 bpm Resp Effort 5 min: Good Cry Reflex Irritability 5 min: Cough or Sneeze or Pulls Away Muscle Tone 5 min: Active Motion Color 5 min: Body Pole [place], Extremities Blue Resuscitation Effort 5 min: Tactile Stimulation SCORE 5 MIN: 9 INFORMATION BABY A Gestational Age at Delivery: 38.3 Gestational Status: Early Term- 37- 38.6 Weeks Infant Outcome : Liveborn Infant Condition : Stable Sex: Male IDENTIFICATION BABY A Infant Verification Date/Time: 02/26/2018 03:23 ID Band Number: [id number] Mother's Name Verified: Yes RN Verifying Infant: Jose Farrell. RN Additional Verifying Personnel: Ralph, K. RN WEIGHT/LENGTH BABY A Birthweight (gm): 2810 Weight (lb): 6 Weight (oz): 3 Length (in): 19.00 Infant Length (cm): 48.26 CORD INFORMATION BABY A No. Cord Vessels: 3 Nuchal Cord : N/A Cord Blood Taken: Yes-For Storage (Mom's Blood type +) Infant Suction: Mouth; Nose ASSESSMENT BABY A Infant Complications: Multiple Late Decels; Multiple Variable Decels Physical Findings at Delivery: Caput Succedaneum Respirations: Appears Normal Skin to Skin: Yes Skin to Skin Time (min): 20 Transferred To: Nursery BABY B INFORMATION : N/A SIGNATURES Signature: with User ID: [email or web address]
[2018-02-26] MEDS ORDERED: IBUPROFEN 800 MG TABLET ONE (05:08)
[2018-02-26] MEDS: IBUPROFEN 800 MG TABLET PO SCH ×3 (05:11→21:54)
--- NOTE | 2018-02-26 08:40 | PDOC PROGRESS REPORT ---
Subjective-OB Progress Note for:: 02/26/18 Subjective: Doing well, holding baby, hsb in room, Physical Exam (OB) Vital Signs: Temp Pulse Resp BP Pulse Ox 98.6 F 93 18 136/74 H 98 02/26/18 05:36 02/26/18 05:36 02/26/18 05:36 02/26/18 05:36 02/26/18 05:36 Intake & Output 02/25/18 02/26/18 02/27/18 06:59 06:59 06:59 Weight 115.3 kg 63.8 kg - Lochia Lochia Amount: Small 10-25 ml Lochia Color: Rubra/Red - Abdomen Description: Soft, Round Hernia Present: No Fundal Description: Firm, Midline Fundal Height: u/u - u/2 Objective-Diagnostic Laboratory: 02/25/18 21:25 02/25/18 21:25 02/25/18 02/25/18 02/25/18 10:59 21:25 21:25 WBC 14.8 H RBC 4.55 Hgb 12.7 Hct 38.3 MCV 84 MCH 27.9 MCHC 33.2 RDW 17.6 H Plt Count 197 Seg Neutrophils % 79.6 H Lymphocytes % 12.9 L Monocytes % 7.2 Eosinophils % 0.1 Basophils % 0.2 Absolute Neutrophils 11.8 H Absolute Lymphocytes 1.9 Absolute Monocytes 1.1 Absolute Eosinophils 0.0 Absolute Basophils 0.0 Sodium 140.1 139.6 Potassium 4.3 4.0 Chloride 107 106 Carbon Dioxide 23 23 Anion Gap 10 11 BUN 11 11 Creatinine 0.50 L 0.55 Est GFR ( Amer) > 60 > 60 Est GFR (Non-Af Amer) > 60 > 60 Glucose 93 79 Uric Acid 5.0 Calcium 9.6 9.4 Total Bilirubin 0.2 0.3 AST 15 15 ALT 23 29 Alkaline Phosphatase 136 H 144 H Total Protein 6.7 6.4 Albumin 3.6 3.4 L Assessment and Plan(PN) - Assessment and Plan (1) Gestational diabetes mellitus (GDM) Qualifiers: Gestational diabetes mellitus control: diet-controlled Trimester: third trimester Qualified Code(s): O24.410 - Gestational diabetes mellitus in , diet controlled Is this a current diagnosis for this admission?: Yes (2) Chronic hypertension affecting Is this a current diagnosis for this admission?: Yes - Time Spent with Patient Time with patient: Less than 15 minutes Medications reviewed and adjusted accordingly: Yes - Disposition Within: within 48 hours
[2018-02-26] MEDS: SENNOSIDES/DOCUSATE 8.6-50 MG 1 EACH TABLET PO SCH (11:00)
[2018-02-26] MEDS: FERROUS SULFATE 325 MG TABLET PO SCH ×2 (11:00→18:25)
[2018-02-26] MEDS: PRENATAL VITAMIN W DHA CAPSULE PO SCH (11:01)
[2018-02-26] MEDS: DOCUSATE SODIUM 100 MG CAPSULE PO SCH ×2 (11:01→18:26)
[2018-02-26] MEDS: FAMOTIDINE 20 MG TABLET PO SCH ×2 (11:07→21:53)
[2018-02-26] MEDS ORDERED: ACETAMINOPHEN 325 MG TABLET PO PRN (18:41)
[2018-02-27] MEDS: IBUPROFEN 800 MG TABLET PO SCH ×3 (05:37→21:40)
[2018-02-27 07:12] LABS: HEMATOCRIT 31.7 % (36.0-47.0); MEAN CORPUSCULAR HEMOGLOBIN 27.8 pg (27.0-33.4); MEAN CORPUSCULAR HGB CONC 32.9 g/dL (32.0-36.0); MEAN CORPUSCULAR VOLUME 85 fl (80-97); PLATELET COUNT 172 10^3/uL (150-450); RED BLOOD COUNT 3.74 10^6/uL (3.72-5.28); RED CELL DISTRIBUTION WIDTH 17.6 % (11.5-14.0); WHITE BLOOD COUNT 11.9 10^3/uL (4.0-10.5)
[2018-02-27 07:16] LABS: HEMOGLOBIN 10.4 g/dL (12.0-15.5)
--- NOTE | 2018-02-27 08:55 | PDOC PROGRESS REPORT ---
Subjective-OB Progress Note for:: 02/27/18 Subjective: Doing well, hsb at BS, no c/o, feeling good Physical Exam (OB) Vital Signs: Temp Pulse Resp BP Pulse Ox 98.2 F 87 18 139/72 H 100 02/27/18 07:24 02/27/18 07:24 02/27/18 07:24 02/27/18 07:24 02/27/18 07:24 Intake & Output 02/26/18 02/27/18 02/28/18 06:59 06:59 06:59 Weight 63.8 kg - PIH/Pre-Eclampsia DTR's: 2 + Clonus: Negative Headache: Absent Epigastric Pain: No Visual Changes: No - Lochia Lochia Amount: Scant < 10 ml Lochia Color: Rubra/Red - Abdomen Description: Tender, Soft Hernia Present: No Fundal Description: Firm, Midline Fundal Height: u/u - u/2 Objective-Diagnostic Laboratory: 02/27/18 06:54 02/25/18 21:25 02/27/18 06:54 WBC 11.9 H RBC 3.74 Hgb 10.4 L D Hct 31.7 L MCV 85 MCH 27.8 MCHC 32.9 RDW 17.6 H Plt Count 172 Assessment and Plan(PN) - Assessment and Plan (1) Gestational diabetes mellitus (GDM) Qualifiers: Gestational diabetes mellitus control: diet-controlled Trimester: third trimester Qualified Code(s): O24.410 - Gestational diabetes mellitus in , diet controlled Is this a current diagnosis for this admission?: Yes (2) Chronic hypertension affecting Is this a current diagnosis for this admission?: Yes - Time Spent with Patient Medications reviewed and adjusted accordingly: Yes - Disposition Anticipated Discharge: Home Within: within 24 hours
[2018-02-27] MEDS: FERROUS SULFATE 325 MG TABLET PO SCH ×2 (10:27→17:45)
[2018-02-27] MEDS: PRENATAL VITAMIN W DHA CAPSULE PO SCH (10:28)
[2018-02-27] MEDS: SENNOSIDES/DOCUSATE 8.6-50 MG 1 EACH TABLET PO SCH (10:28)
[2018-02-27] MEDS: DOCUSATE SODIUM 100 MG CAPSULE PO SCH ×2 (10:28→17:45)
[2018-02-27] MEDS: FAMOTIDINE 20 MG TABLET PO SCH ×2 (12:59→21:40)
[2018-02-28] MEDS ORDERED: LABETALOL HCL 200 MG TABLET PO ONE (00:45)
[2018-02-28] MEDS ORDERED: ACETAMINOPHEN WITH CODEINE #3 TABLET ONE (02:29)
[2018-02-28] MEDS: IBUPROFEN 800 MG TABLET PO SCH ×2 (05:00→13:30)
--- NOTE | 2018-02-28 08:39 | PDOC DISCHARGE SUMMARY ---
Final Diagnosis Discharge Date: 02/28/18 - Final Diagnosis (1) Vaginal delivery Is this a current diagnosis for this admission?: Yes (2) Acute blood loss anemia Is this a current diagnosis for this admission?: Yes (3) Chronic hypertension affecting Is this a current diagnosis for this admission?: Yes (4) Gestational diabetes mellitus (GDM) Is this a current diagnosis for this admission?: Yes Discharge Data - Discharge Medication Prescriptions: Docusate Sodium [Colace 100 mg Capsule] 100 mg PO BID #60 capsule Ferrous Sulfate [Feosol 325 mg Tablet] 325 mg PO BID #60 tablet Ibuprofen [Motrin 800 mg Tablet] 800 mg PO Q8 #60 tablet Home Medications: Labetalol HCl 200 mg PO TID 02/09/18 No122/Iron/Folic Acid [ Multi Tablet] 1 tab PO DAILY 02/09/18 Docusate Sodium [Colace 100 mg Capsule] 100 mg PO BID #60 capsule 02/28/18 Ferrous Sulfate [Feosol 325 mg Tablet] 325 mg PO BID #60 tablet 02/28/18 Ibuprofen [Motrin 800 mg Tablet] 800 mg PO Q8 #60 tablet 02/28/18 Gestational Age: 38.3 Reason(s) for Admission: Induction of Labor, PIH Procedures: NST Intrapartum Procedure(s): Spontaneous Vaginal Delivery - Data Baby 1 Male at 1 minute: 8 at 5 minutes: 9 Weight: 2810 kg Home with Mother: Yes Complications: No - Diagnosis Test Laboratory: Temp Pulse Resp BP Pulse Ox 97.4 F 73 16 129/71 H 100 02/28/18 08:33 02/28/18 08:33 02/28/18 08:33 02/28/18 08:33 02/28/18 08:33 02/24/18 02/24/18 02/25/18 18:12 18:19 21:25 RBC 4.39 4.55 Hgb 12.3 12.7 Hct 36.8 38.3 Urine Opiates Screen NEGATIVE 02/27/18 06:54 RBC 3.74 Hgb 10.4 L D Hct 31.7 L Urine Opiates Screen - Discharge information/Instructions Discharge Activity: Activity As Tolerated, Pelvic Rest, No tub bath Discharge Diet: Regular Disposition: HOME, SELF-CARE Follow up with: [facility] in: 1, Weeks
[2018-02-28] MEDS: FERROUS SULFATE 325 MG TABLET PO SCH (09:16)
[2018-02-28] MEDS: PRENATAL VITAMIN W DHA CAPSULE PO SCH (09:18)
[2018-02-28] MEDS: SENNOSIDES/DOCUSATE 8.6-50 MG 1 EACH TABLET PO SCH (09:18)
[2018-02-28] MEDS: FAMOTIDINE 20 MG TABLET PO SCH (09:28)
[2018-02-28] MEDS: DOCUSATE SODIUM 100 MG CAPSULE PO SCH (09:29)
[2018-02-28] MEDS ORDERED: LABETALOL HCL 200 MG TABLET PO SCH (10:00)
[2018-02-28 12:53] VITALS: BP 140/79
== END 2018-02-28 15:28 | disposition home or self-care (01) | DRG 775 ==
LOC: LR 17:52 → 2S 02-26 05:30
PROVIDERS: ADMIT Obstetrics & Gynecology Gynecology; ATTEND Obstetrics & Gynecology Gynecology
PROC: 10E0XZZ Delivery of Products of Conception, External Approach (ICD-10-PCS; principal; 2018-02-26)
DX: O24.425 Gestational diabetes mellitus in childbirth, controlled by oral hypoglycemic drugs (principal); O13.4 Gestational [pregnancy-induced] hypertension without significant proteinuria, complicating childbirth; O76 Abnormality in fetal heart rate and rhythm complicating labor and delivery; O69.81X0 Labor and delivery complicated by cord around neck, without compression, not applicable or unspecified; Z3A.38 38 weeks gestation of pregnancy; Z37.0 Single live birth
CPT/HCPCS: 36415; 80053; 80307; 81005; 82962; 83615; 84550; 85025; 85027; 86592; 86850; 86900; 86901; 94760; J2300; J2370; J2550; J2590; J3010; J3490

== ENCOUNTER 2020-04-25 22:42 | Inpatient (IN) | payer BC ==
[2020-04-25] MEDS ORDERED: DINOPROSTONE 10 MG VAGINAL INSERT.SR PV PRN (22:50)
[2020-04-25] MEDS ORDERED: PENICILLIN G POTASSIUM 5,000,000 UNIT in DEXTROSE 5%-WATER 100 ML IV ONE (22:51)
[2020-04-25] MEDS ORDERED: RINGERS SOLUTION,LACTATED 1,000 ML IV ONE (22:51)
[2020-04-25] MEDS ORDERED: RINGERS SOLUTION,LACTATED 1,000 ML IV PRN (22:51)
[2020-04-25 23:10] LABS: ABSOLUTE LYMPHOCYTES (AUTO) 2.5 10^3/uL (0.5-4.7); ABSOLUTE NEUT (AUTO) 10.8 10^3/uL (1.7-8.2); BASOPHILS % (AUTO) 0.1 % (0-2); EOSINOPHILS % (AUTO) 0.3 % (0-6); HEMATOCRIT 37.7 % (36.0-47.0); HEMOGLOBIN 12.6 g/dL (12.0-15.5); LYMPHOCYTES % (AUTO) 17.2 % (13-45); MEAN CORPUSCULAR HEMOGLOBIN 28.9 pg (27.0-33.4); MEAN CORPUSCULAR HGB CONC 33.4 g/dL (32.0-36.0); MEAN CORPUSCULAR VOLUME 87 fl (80-97); MONOCYTES % (AUTO) 7.3 % (3-13); PLATELET COUNT 230 10^3/uL (150-450); RED BLOOD COUNT 4.36 10^6/uL (3.72-5.28); RED CELL DISTRIBUTION WIDTH 15.2 % (11.5-14.0); SEGMENTED NEUTROPHILS % (AUTO) 75.1 % (42-78); TOTAL CELLS COUNTED % (AUTO) 100 %; WHITE BLOOD COUNT 14.4 10^3/uL (4.0-10.5)
[2020-04-25] MEDS ORDERED: MISOPROSTOL 0.2 MG TABLET ONE (23:29)
[2020-04-25] MEDS ORDERED: OXYTOCIN/0.9 % SODIUM CHLORIDE 30 UNIT/500 ML RTUINJ ONE (23:29)
[2020-04-25] MEDS ORDERED: LIDOCAINE 1% INJ-PF (10 MG/ML) 30 ML SDV ONE (23:29)
[2020-04-25] MEDS ORDERED: OXYTOCIN 10 UNIT/ML VIAL ONE (23:29)
[2020-04-25] MEDS ORDERED: DINOPROSTONE 10 MG VAGINAL INSERT.SR ONE (23:32)
[2020-04-25 23:56] LABS: APPEARANCE,URINE SLIGHTLY-CLOUDY; BILIRUBIN,URINE NEGATIVE (NEGATIVE); COLOR,URINE YELLOW; GLUCOSE, URINE NEGATIVE (NEGATIVE); KETONES,URINE TRACE mg/dL (NEGATIVE); LEUKOCYTE ESTERASE,URINE NEGATIVE (NEGATIVE); NITRITE,URINE NEGATIVE (NEGATIVE); PROTEIN,URINE 30 mg/dL (NEGATIVE); URINE SPECIFIC GRAVITY 1.026; UROBILINOGEN,URINE NEGATIVE mg/dL (<2.0)
[2020-04-26 00:08] LABS: URINE AMPHETAMINES SCREEN NEGATIVE; URINE BARBITURATES SCREEN NEGATIVE; URINE BENZODIAZEPINES SCREEN NEGATIVE; URINE COCAINE SCREEN NEGATIVE; URINE MARIJUANA (THC) SCREEN NEGATIVE; URINE METHADONE SCREEN NEGATIVE; URINE PHENCYCLIDINE SCREEN NEGATIVE
[2020-04-26 00:45] LABS: ALBUMIN 3.7 g/dL (3.5-5.0); ALKALINE PHOSPHATASE 98 U/L (38-126); ANION GAP 6 (5-19); ASPARTATE AMINO TRANSFERASE 17 U/L (14-36); BILIRUBIN,TOTAL 0.3 mg/dL (0.2-1.3); BLOOD UREA NITROGEN 11 mg/dL (7-20); CALCIUM 9.3 mg/dL (8.4-10.2); CARBON DIOXIDE 23 mmol/L (22-30); CHLORIDE 104 mmol/L (98-107); GLUCOSE 114 mg/dL (75-110); POTASSIUM 4.3 mmol/L (3.6-5.0); TOTAL PROTEIN 6.9 g/dL (6.3-8.2); URIC ACID 5.3 mg/dL (2.5-6.2)
--- NOTE | 2020-04-26 02:43 | Admission Physical ---
Datetime Report Generated by CPN: 04/26/2020 02:43 CURRENT ADMISSION Chief Complaint: Scheduled Induction of Labor Indication for Induction: Chronic Primary/Essential HTN Admit Impression : Term, Intrauterine ; Induction of Labor Admit Plan: Admit to Unit; Initiate Labor Induction Protocol ALLERGIES Medication Allergies: Yes Medication Allergies: aspirin (02/24/2018) Latex: No Latex Allergies Food Allergies: no Environmental Allergies: no OBSTETRICAL HISTORY EDC: 05/09/2020 00:00 : 2 Para: 1 Term: 1 : 0 SAB: 0 IAB: 0 Ectopic: 0 Livin Cesareans: 0 VBACs: 0 Multiple Births: 0 Gestational Diabetes: Yes Rh Sensitization: No Incompetent Cervix: No CHITO: No Infertility: No ART Treatment: No Uterine Anomaly: No IUGR: No Hx Previous C/S: No Macrosomia: No Hx Loss/Stillborn: No PIH: No Hx : No Placenta Previa/Abruption: No Depression/PP Depression: Yes PTL/PROM: No Post Hemorrhage: No Current Procedures: Ultrasound SEE RECORDS Alcohol: No Marijuana : No Cocaine: No Other Illicit Drugs: No Cigarettes: Never Smoker. 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 Heart Disease: No Hosp/Surgery: Yes Autoimmune Disorder: No Anesthetic Complications: No Kidney Disease: No Abnormal Pap Smear: No Neuro/Epilepsy: No Psychiatric Disorders: Yes Other Medical Diseases: No Hepatitis/Liver Disease: No Significant Family History: No Varicosities/Phlebitis: No Trauma/Violence : No INFECTIOUS HISTORY Gonorrhea: No Genital Herpes: No Chlamydia: No Tuberculosis: No Syphilis: No Hepatitis: No HIV/AIDS Exposure: No Rash or Viral Illness: No HPV: No PHYSICAL EXAM General: Normal HEENT: Normal Neurologic: Normal Thyroid: Normal Heart: Normal Lungs: Normal Breast: Deferred Back: Normal Abdomen: Normal Genitourinary Exam: Normal Extremities: Normal DTRs: Normal Pelvic Type: Adequate Vital Signs: Reviewed VAGINAL EXAM Dilatation: 1 Effacement: 0 Station: -2 MEMBRANES Pooling: Negative Membranes: Intact FETUS A EGA: 38.1 Monitoring: External US FHR- Baseline: 120 Variability: Moderate 6-25bpm Decelerations: None FHR Category: Category I Presentation: Vertex Admit Comment: Admit for induction of labor. PLANS FOR LABOR AND DELIVERY Labor and Delivery: None Pain Management: Epidural Feeding Preference: Breast Benefit of Breast Feed Discussed: Yes Circumcision: N/A INFORMED CONSENT Signature: with User ID: [email or web address]
[2020-04-26] MEDS: PENICILLIN G POTASSIUM 2,500,000 UNIT in DEXTROSE 5%-WATER 50 ML IV SCH ×3 (08:33→18:05)
[2020-04-26] MEDS ORDERED: OXYTOCIN/0.9 % SODIUM CHLORIDE 30 UNIT/500 ML RTUINJ IV PRN ×2 (09:37→18:21)
[2020-04-26] MEDS ORDERED: NIFEDIPINE 30 MG TAB.ER.24 PO ONE (09:39)
[2020-04-26] MEDS ORDERED: PENICILLIN G-K 5 MILLION UNIT VIAL ONE (09:39)
[2020-04-26] MEDS: NIFEDIPINE 30 MG TAB.ER.24 PO SCH ×2 (09:47→22:30)
[2020-04-26] MEDS ORDERED: SERTRALINE HCL PO SCH (10:00)
[2020-04-26 10:32] LABS: ABSOLUTE LYMPHOCYTES (AUTO) 1.9 10^3/uL (0.5-4.7); ABSOLUTE MONOCYTES (AUTO) 0.7 10^3/uL (0.1-1.4); BASOPHILS % (AUTO) 0.1 % (0-2); EOSINOPHILS % (AUTO) 0.3 % (0-6); HEMATOCRIT 36.2 % (36.0-47.0); LYMPHOCYTES % (AUTO) 19.6 % (13-45); MEAN CORPUSCULAR HEMOGLOBIN 28.7 pg (27.0-33.4); MEAN CORPUSCULAR HGB CONC 33.1 g/dL (32.0-36.0); MEAN CORPUSCULAR VOLUME 87 fl (80-97); MONOCYTES % (AUTO) 7.3 % (3-13); PLATELET COUNT 192 10^3/uL (150-450); RED BLOOD COUNT 4.17 10^6/uL (3.72-5.28); RED CELL DISTRIBUTION WIDTH 15.3 % (11.5-14.0); SEGMENTED NEUTROPHILS % (AUTO) 72.7 % (42-78); TOTAL CELLS COUNTED % (AUTO) 100 %; WHITE BLOOD COUNT 9.6 10^3/uL (4.0-10.5)
[2020-04-26 11:01] LABS: ALBUMIN 3.2 g/dL (3.5-5.0); ALKALINE PHOSPHATASE 87 U/L (38-126); ASPARTATE AMINO TRANSFERASE 16 U/L (14-36); BILIRUBIN,TOTAL 0.3 mg/dL (0.2-1.3); BLOOD UREA NITROGEN 8 mg/dL (7-20); CARBON DIOXIDE 25 mmol/L (22-30); CHLORIDE 105 mmol/L (98-107); GLUCOSE 104 mg/dL (75-110); POTASSIUM 4.1 mmol/L (3.6-5.0); TOTAL PROTEIN 6.4 g/dL (6.3-8.2); URIC ACID 4.9 mg/dL (2.5-6.2)
[2020-04-26 11:02] LABS: ANION GAP 4 (5-19)
[2020-04-26] MEDS ORDERED: HYDRALAZINE HCL INJ/PF 20 MG/1 ML SDV ONE (11:04)
[2020-04-26] MEDS ORDERED: HYDROXYZINE PAMOATE 50 MG CAPSULE ONE (11:04)
[2020-04-26] MEDS ORDERED: HYDROXYZINE PAMOATE 50 MG CAPSULE PO ONE (11:08)
[2020-04-26] MEDS ORDERED: HYDROXYZINE PAMOATE 25 MG CAPSULE PO ONE (11:30)
[2020-04-26] MEDS ORDERED: HYDRALAZINE HCL INJ/PF 20 MG/1 ML SDV IV ONE (11:30)
[2020-04-26] MEDS ORDERED: NALBUPHINE HCL INJ 10 MG/1 ML AMPULE IV ONE (11:59)
[2020-04-26] MEDS ORDERED: NALBUPHINE HCL INJ 10 MG/1 ML AMPULE IM ONE (11:59)
[2020-04-26] MEDS ORDERED: NALBUPHINE HCL INJ 10 MG/1 ML AMPULE ONE ×2 (12:03)
[2020-04-26] MEDS ORDERED: PENICILLIN G POTASSIUM 2,500,000 UNIT in DEXTROSE 5%-WATER 50 ML IV SCH (14:00)
[2020-04-26] MEDS ORDERED: EPHEDRINE SULFATE INJ 50 MG/1 ML AMPULE ONE ×2 (14:17→18:34)
[2020-04-26] MEDS ORDERED: ROPIVACAINE HCL 0.2% INJ/PF (2 MG/ML) 20 ML SDV ONE (14:17)
[2020-04-26] MEDS ORDERED: FENTANYL/BUPIVACAINE/NS/PF 300 MCG/150 ML RTUINJ EPI ONE (14:17)
--- NOTE | 2020-04-26 15:17 | L&D Progress Notes ---
PROGRESS NOTES Datetime Report Generated by CPN: 04/26/2020 15:17 PROGRESS NOTE Comment: cooks placed earlier and then removed as patient is now 4cm and desires epidural VAGINAL EXAM Dilatation: 1 Effacement: 0 Station: -2 LAST VAGINAL EXAM-NURSING Nursing Exam Dilitation: 4.0 Nursing Exam Effacement: 70 Nursing Exam Station: -3 Nursing Exam Contractions: UTD due to dean monitor, RN at bedside troubleshooting MEMBRANES Pooling: Negative Membranes: Intact FETUS A : 38.0 Presentation: Vertex SIGNATURE SIGNATURE: [id number];[id number] Signature: with User ID: [email or web address]
[2020-04-26] MEDS: LABETALOL HCL 200 MG TABLET PO SCH ×2 (17:52→22:30)
[2020-04-26] MEDS ORDERED: OXYCODONE-ACETAMINOPHEN 5-325 MG TABLET PO PRN (18:21)
[2020-04-26] MEDS ORDERED: ACETAMINOPHEN 325 MG TABLET PO PRN (18:21)
[2020-04-26] MEDS ORDERED: DIPH/PERTUSS(ACELL)/TETANUS VAC/PF 0.5 ML SYR (>=10YO) IM PRN (18:21)
[2020-04-26] MEDS ORDERED: ACETAMINOPHEN 1,000 MG/100 ML RTUPB IV PRN (18:21)
[2020-04-26] MEDS ORDERED: MEASLES,MUMPS&RUBELLA VACC/PF 0.5 ML VIAL SUBCUT PRN (18:21)
[2020-04-26] MEDS ORDERED: RINGERS SOLUTION,LACTATED 1,000 ML IV PRN (18:21)
[2020-04-26] MEDS ORDERED: PROMETHAZINE HCL INJ 25 MG/1 ML VIAL IV PRN (18:21)
[2020-04-26] MEDS ORDERED: CEFAZOLIN 2 GM/D5W RTU 2 GM/50 ML RTUPB IV ONE (18:25)
[2020-04-26] MEDS ORDERED: CITRIC ACID/SODIUM CITRATE ORAL SOLN 15 ML UDCUP ONE (18:25)
--- NOTE | 2020-04-26 18:27 | L&D Progress Notes ---
PROGRESS NOTES Datetime Report Generated by CPN: 04/26/2020 18:27 PROGRESS NOTE Impression: Non-reassuring Heart Rate Plan: Deliver- Section Vital Signs : Reviewed Comment: Discussed need for emergency CS for NRFHT, Dr. Florin on unit. VAGINAL EXAM Dilatation: 1 Effacement: 0 Station: -2 LAST VAGINAL EXAM-NURSING Nursing Exam Dilitation: 4.0 Nursing Exam Effacement: 50 Nursing Exam Station: -3 Nursing Exam Contractions: UTD due to dean monitor, RN at bedside troubleshooting MEMBRANES Pooling: Negative Membranes: Ruptured Amniotic Fluid Color: Clear FETUS A FHR - Baseline: 130 Monitoring: External US Decelerations: Early FHR Category: Category III FHR Comments: decelerations following AROM to fede 50s-60s, unresolved despite position changes. bolus, and O2. : 38.1 Presentation: Vertex SIGNATURE SIGNATURE: [id number];[id number] Assignment: Yue Catherine MD Signature: with User ID: [email or web address] : with User ID: [email or web address]
[2020-04-26] MEDS ORDERED: KETOROLAC TROMETHAMINE INJ/PF 30 MG/1 ML SDV ONE (18:33)
[2020-04-26] MEDS ORDERED: PHENYLEPHRINE HCL INJ/PF 10 MG/1 ML SDV ONE (18:33)
[2020-04-26] MEDS ORDERED: OXYTOCIN 10 UNIT/ML VIAL ONE (18:33)
[2020-04-26] MEDS ORDERED: LIDOCAINE 2% INJ-PF (20 MG/ML) 10 ML AMPUL ONE (18:33)
[2020-04-26] MEDS ORDERED: OXYTOCIN/0.9 % SODIUM CHLORIDE 30 UNIT/500 ML RTUINJ ONE (18:34)
[2020-04-26] MEDS ORDERED: MIDAZOLAM 2 MG/2 ML INJ ONE (18:34)
[2020-04-26] MEDS ORDERED: ONDANSETRON HCL INJ/PF 4 MG/2 ML SDV ONE (18:34)
[2020-04-26] MEDS ORDERED: ACETAMINOPHEN 1,000 MG/100 ML RTUPB IV ONE ×2 (18:34→20:04)
[2020-04-26] MEDS ORDERED: FENTANYL CITRATE INJ/PF 100 MCG/2 ML AMPUL ONE (18:34)
[2020-04-26] MEDS ORDERED: PROPOFOL INJ 200 MG/20 ML VIAL IV ONE (18:41)
[2020-04-26] MEDS ORDERED: CARBOPROST TROMETHAMINE INJ 250 MCG/1 ML AMPULE ONE (18:52)
[2020-04-26] MEDS ORDERED: MISOPROSTOL 0.2 MG TABLET ONE (18:52)
[2020-04-26] MEDS ORDERED: HYDROMORPHONE HCL INJ/PF 2 MG/ML AMPULE ONE ×2 (18:53→20:30)
--- NOTE | 2020-04-26 19:50 | Operative Report ---
Operative Report DATE OF SURGERY: 04/26/20 PREOPERATIVE DIAGNOSIS: , 38+1ega, Obesity, GBS positive, CHTN with naveed re range BPs, GDM, 16%EFW, NRFHTs due to cord prolapse. POSTOPERATIVE DIAGNOSIS: MIRTHA - delivered OPERATION: Primary section SURGEON: SHWETA REVELES ANESTHESIA: GA TISSUE REMOVED OR ALTERED: placenta and cord sent to pathology COMPLICATIONS: mild uterine atony. ESTIMATED BLOOD LOSS: 250 INTRAOPERATIVE FINDINGS: VFI delivered at 1848, Apgars 7/9, weight 5#6oz (2430g). Double nuchal cord with left hand underneath 2nd nuchal cord and then approximately 4cm loop of cord noted above infants head. PROCEDURE: Anesthesia provider: [Abad Dunne CRNA, Dr. Russo] Estimated blood loss: [400ml] Urine output: [250ml] IV fluids: [1300ml] Indications: [34yo at 38+1ega with CHTN on Labetolol (100mg po BID) and Procardia XL (30mg po daily) and allergic to aspirin presented for IOL on 04/25/2020 due to severe range BPs and was initiated with cervidil. also complicated by h/o GDM 197 on early GTT and consider as GDM. Obesity. GBS positive and has been on PCN since initiating pitocin IOL this am. CNM AROM with clear fluid at 1656 and sometime after AROM at 4cm despite being on pitocin for the majority of the day she was noted to begin to have decelerations. CNM checked patient and position changes to help with decelerations performed and per exam no change in cervix and no prolapsed cord. Due to persistent decelerations decision was made to proceed urgently to the OR. Upon cervical exam to remove FSE by RN there was noted a cord prolapse. RN remained with SVE to hold head off cord an we proceeded to the OR emergently. In OR at 1846. Start at 1846 and uterine incision at 1847 and baby was born at 1848.] Procedure: The patient was taken to the operating room where general anesthesia was obtained after she was then prepped and draped in the normal sterile fashion and placed in the dorsal supine position with a leftward tilt. A Pfannenstiel skin incision was then made and carried through to the underlying layers of the fascia with the scalpel. The fascia was incised in the midline and the incision extended laterally with the [place] scissors. The superior aspect of the fascial incision was then grasped with ramila clamps elevated and the underlying rectus muscles dissected off [bluntly]. Attention was then turned to the inferior aspect of the fascial incision which in a similar fashion was grasped, tented up with Ramila clamps, and the rectus muscles dissected off [bluntly]. The rectus muscles were then in the midline and the peritoneum at the amount identified and entered [bluntly]. The peritoneal incision was then extended superiorly and inferiorly with good visualization of the bladder. The bladder blade was inserted and the lower uterine segment incised in a transverse fashion with the scalpel. The uterine incision was then extended bluntly. The bladder blade was removed and the 's head was delivered from cephalic presentation atraumatically. The nose and mouth were suctioned and the cord doubly clamped and cut. And the infant was handed off to waiting pediatricians. The placenta was then delivered spontaneously and the uterus exteriorized and cleared of all clots and debris. The uterine incision was then repaired with 1- 0 Vicryl in a running locked fashion. A second layer of the same suture was used to obtain hemostasis via imbrication of the initial layer. The bladder flap was then repaired with 3-0 chromic in a running fashion. The uterus was returned to the patient's abdomen and Surgicel was placed overlying the uterine incision to help with bleeding. The gutters were cleared of all clots and debris. All operative sites were noted to be hemostatic. The fascia was reapproximated with 0 Vicryl in a running fashion from each lateral edge to the midline. The skin was closed with 3-0 Monocryl in a running subcuticular fashion with overlying Dermabond for additional dressing as well as wound closure. The patient tolerated the procedure well. Sponge lap needle and instrument counts are correct times 2. 2 g of Ancef were given prior to skin incision. The patient was taken to the recovery area awake and in stable condition.
[2020-04-26] MEDS ORDERED: MORPHINE SULFATE 10 MG/ML INJ ONE (20:36)
[2020-04-26] MEDS ORDERED: KETOROLAC TROMETHAMINE INJ/PF 30 MG/1 ML SDV IV SCH (22:00)
[2020-04-26] MEDS: HYDROMORPHONE HCL INJ/PF 2 MG/ML AMPULE IV PRN (22:35)
[2020-04-26] MEDS: CEFAZOLIN 1 GM/D5W RTU 1 GM/50 ML RTUPB IV SCH (23:32)
[2020-04-27] MEDS: OXYCODONE-ACETAMINOPHEN 5-325 MG TABLET PO PRN ×4 (00:37→20:59)
[2020-04-27] MEDS: HYDROMORPHONE HCL INJ/PF 2 MG/ML AMPULE IV PRN ×2 (01:43→06:02)
[2020-04-27] MEDS ORDERED: IBUPROFEN 800 MG TABLET PO SCH (04:00)
--- NOTE | 2020-04-27 04:43 | Birth Certificate Data ---
Cert Data Datetime Report Generated by CPN: 04/27/2020 04:43 CERTIFICATE DATA 47a. Care: Yes (04/12/2020 15:24:Karen Garcia RN) 47b. Date of First Visit: 09/28/2019 00:00 (04/12/2020 15:24:OSVALDO López) 47c. Date of Last Visit: 04/25/2020 00:00 (04/12/2020 15:24:OSVALDO López) 47d. Number of Visits: 16 (04/12/2020 15:24:OSVALDO López) 48a. Number of Prev Live Births: 1 (04/12/2020 15:24:OSVALDO López) 48b. Now Livin (04/12/2020 15:24:Garett Whitman RN) 48c. Live Births Now : 0 (04/12/2020 15:24:QS system process) 48e. Losses: 0 (04/12/2020 15:24:Radha Bellavance, RNC) RISK FACTORS IN THIS 49a. Diabetes: Yes (04/12/2020 15:24:Radha Bellavance, RNC) Type of Diabetes: Gestational Diabetes (04/12/2020 15:24:Radha Bellavance, RNC) 49b. Hypertension: Yes (04/12/2020 15:24:Radha Bellavance, RNC) Type of Hypertension: Chronic (04/12/2020 15:24:Radha Bellavance, RNC) 49c. Previous Births: 0 (04/12/2020 15:24:Garett Whitman RN) Stillborns: No (04/12/2020 15:24:Radha Bellavance, RNC) IUGR: No (04/12/2020 15:24:Radha Bellavance, RNC) 49e. Infertility Treatment: No (04/12/2020 15:24:Radha Bellavance, RNC) 49f. Previous Cesareans: 0 (04/12/2020 15:24:Karen Garcia RN) Mother's Height 50b. Height Inches: 68 (04/26/2020 21:45:QS system process) Mother's Weight 51a. Pre- Weight: 249 (04/12/2020 15:24:Karen Garcia RN) 51b. Weight at Time of Delivery: 257 (04/26/2020 21:45:QS system process) Infections Present/Treated 53a. Gonorrhea: No (04/12/2020 15:24:OSVALDO López) Results this Hospital Visit : Negative (04/12/2020 15:24:OSVALDO López) 53b. Syphilis: No (04/12/2020 15:24:OSVALDO López) Results this Hospital Visit: NONREACTIVE (04/25/2020 23:00:QS system process) 53c. Chlamydia: No (04/12/2020 15:24:OSVALDO López) Results this Hospital Visit: Negative (04/12/2020 15:24:OSVALDO López) 53d. Hepatitis B: No (04/12/2020 15:24:OSVALDO López) Results this Hospital Visit: Negative (04/12/2020 15:24:OSVALDO López) 53e. Hepatitis C: Negative (04/12/2020 15:24:OSVALDO López) 53i. Date Tested: 09/28/2019 00:00 (04/12/2020 15:24:OSVALDO López) Obstetric Procedures 54a, b, c. Obstetric Procedures: Ultrasound (04/12/2020 15:24:OSVALDO López) Cigarette Smoking 55a. 3 Months Before Preg - Ci (04/12/2020 15:24:OSVALDO López) 55b. 1st Trimester of Preg- Ci (04/12/2020 15:24:OSVALDO López) 55c. 2nd Trimester of Preg- Ci (04/12/2020 15:24:OSVALDO López) 55d. 3rd Trimester of Preg- Ci (04/12/2020 15:24:OSVALDO López) Onset of Labor 56a. PROM >12 Hrs: 1.87 (04/12/2020 15:24:QS system process) 56b. Precipitous Labor <3 Hrs: 4 (04/12/2020 15:24:QS system process) 56c. Prolonged Labor > 20 Hrs: 4 (04/12/2020 15:24:QS system process) 57a. Induction of Labor: Induction (04/12/2020 15:24:Kimmy Mena RN) 57a. Induction of Labor: Cervidil; Other (04/25/2020 23:47:Kimmy Mena RN) 57a. Induction of Labor: cooks cath (04/12/2020 15:24:Kimmy Mena RN) 57c. Non-Vertex Presentation A: Vertex (04/12/2020 15:24:Karen Garcia RN) 57d. Steroids - Lung Mat: None (04/12/2020 15:24:Kimmy Mena RN) 57d. Steroids - Lung Mat: Not Applicable (04/12/2020 15:24:Kimmy Mena RN) 57e. Antibiotics During Labor: 1800 (04/12/2020 15:24:Kimmy Mena RN) 57f. Mat [place] or Temp >100.4: 98.1 (04/12/2020 15:24:Karen Garcia RN) 57g. Moderate/Heavy Meconium: Clear (04/26/2020 16:56:Kimmy Mena RN) 57h. Intolerance of Labor: Nonreassuring Status (04/12/2020 15:24:Karen Garcia RN) : Prolapsed Cord (04/12/2020 15:24:Karen Garcia RN) 57i. Epidural/Spinal Anesthesia: Epidural (04/12/2020 15:24:Karen Garcia RN) Method of Delivery 58a. Forceps - Unsuccessful A: N/A (04/12/2020 15:24:Karen Garcia RN) 58b. Vacuum - Unsuccessful A: N/A (04/12/2020 15:24:Karen Garcia RN) 58c. Presentation at 58c. Presentation at - A : Vertex (04/12/2020 15:24:Karen Garcia RN) 58c. Presentation at - A : N/A (04/12/2020 15:24:Karen Garcia RN) 58c. Presentation at - A : Cephalic (04/25/2020 23:46:Radha Bellavance, [facility]) Final Route and Method of Del 58d. Baby A Route/Delivery: (04/12/2020 15:24:Karen Garcia RN) 58e. Trial of Labor Attempted: No (04/12/2020 15:24:Kimmy Mena RN) 58e. Trial of Labor Attempted A: N/A (04/12/2020 15:24:Kimmy Mena RN) 58e. Trial of Labor Attempted B: N/A (04/12/2020 15:24:Kimmy Mena RN) Maternal Morbidity 59b. 3rd or 4th Degree Lacs: None (04/12/2020 15:24:Karen Garcia RN) Birthweight Baby A: 2430 (04/12/2020 15:24:Beba Blevins RN) 60a. Pounds : 5 (04/12/2020 15:24:QS system process) 60b. Ounces: 6 (04/12/2020 15:24:QS system process) 61. GA at Delivery Baby A: 38.1 (04/12/2020 15:24:Karen Garcia RN) : Early Term- 37- 38.6 Weeks (04/12/2020 15:24:QS system process) 62a. 5 Minute Baby A: 9 (04/12/2020 15:24:QS system process)
--- NOTE | 2020-04-27 04:43 | Delivery Summary ---
Del Sum A-C Datetime Report Generated by CPN: 04/27/2020 04:42 DELIVERY PERSONNEL DELIVERY PERSONNEL: [id number] Delivery Doctor:: Yue Catherine MD Anesthesiologist:: Dr. Russo CERTIFIED PHYSICIAN'S ASSISTANT:: Abad Normile, CERTIFIED PHYSICIAN'S ASSISTANT Deputy Prosecuting Attorney:: Kimmy eMna RN Salad Bar Clerk:: Dr. Blade [place] Nursery Nurse:: Babs Pina RN Press Brake Operator/STRAIGHT CUTTER: ST Sof[facility] Press Brake Operator/STRAIGHT CUTTER: Brianna Almaguer, FASHION DESIGN PROFESSOR MATERNAL INFORMATION Delivery Anesthesia: Epidural Medications After Delivery: Pitocin 30 Units in 500ml NS/D5W; Cytotec 1000mcg Per Rectum/Vagina Meds After Delivery Comment: Hemabate [address] Catherine into uterus Maternal Complications: Other LABOR SUMMARY EDC: 05/09/2020 00:00 No. Babies in Womb: 1 Attempted: No Labor Anesthesia: Epidural LABOR INFORMATION Reason for Induction: Chronic Primary/Essential HTN Onset of Labor: 04/26/2020 14:09 Cervical Ripening Agents: Cervidil; Other Other Ripening Agents: cooks cath Oxytocin: Induction Group B Beta Strep: 1 GROUP B BETA HEMOLYTIC STREPTOCOCCUS RECOVERED Penicillin and ampicillin are drugs of choice for treatment of beta-hemolytic streptococcal infections. Susceptibility testing of penicillins and other beta-lactam agents approved by the FDA for treatment of beta-hemolytic streptococcal infections need not be performed routinely because nonsusceptible isolates are extremely rare in any beta-hemolytic streptococcus and have not been reported for Streptococcus pyogenes (group A). (CLSI) Antibiotics # of Doses: 3 Antibiotics Time of Last Dose: 1800 Name of Antibiotic Given: PCN Steroids Given: None Reason Steroids Not Administered: Not Applicable MEMBRANES Membranes Rupture Method: Artificial Rupture of Membranes: 04/26/2020 16:56 Length of Rupture (hr): 1.87 Amniotic Fluid Color: Clear Amniotic Fluid Amount: Moderate Amniotic Fluid Odor: None STAGES OF LABOR Stage 3 hr: 0 Stage 3 min: 1 Total Time in Labor hr: 4 Total Time in Labor min: 40 VAGINAL DELIVERY Episiotomy: None Laceration #1: None Laceration Extension #1: N/A Laceration Repair: Not Applicable Sponge Count Correct: N/A Sharps Count Correct: N/A CSECTION DELIVERY Primary Indication: Nonreassuring Status Secondary Indication: Prolapsed Cord CSection Urgency: Emergency CSection Incidence: Primary Labor: Labor CSection Incision: Lower Uterine Transverse BABY A INFORMATION Delivery Date/Time: 04/26/2020 18:48 Method of Delivery: Nurse Controlled Delivery: No Born in Route : No : N/A Forceps: N/A Vacuum Extraction: N/A Shoulder Dystocia : No PRESENTATION/POSITION BABY A Presentation: Cephalic Cephalic Presentation: Vertex Breech Presentation: N/A PLACENTA INFORMATION BABY A Placenta Delivery Time : 04/26/2020 18:49 Placenta Method of Delivery: Manual Removal Placenta Status: Delivered SCORES BABY A Heart Rate 1 min: >100 bpm Resp Effort 1 min: Good Cry Reflex Irritability 1 min: Cough or Sneeze or Pulls Away Muscle Tone 1 min: Some Flexion of Extremities Color 1 min: Blue/Pale Resuscitation Effort 1 min: Tactile Stimulation SCORE 1 MIN: 7 Heart Rate 5 min: >100 bpm Resp Effort 5 min: Good Cry Reflex Irritability 5 min: Cough or Sneeze or Pulls Away Muscle Tone 5 min: Active Motion Color 5 min: Body [place], Extremities Blue Resuscitation Effort 5 min: N/A SCORE 5 MIN: 9 INFORMATION BABY A Gestational Age at Delivery: 38.1 Gestational Status: Early Term- 37- 38.6 Weeks Outcome : Liveborn Infant Condition : Stable Sex: Female IDENTIFICATION BABY A Verification Date/Time: 04/26/2020 19:54 ID Band Number: [id number] Mother's Name Verified: Yes Infant RN Verifying : K. Crimm RN _ B. Ring RN WEIGHT/LENGTH BABY A Infant Birthweight (gm): 2430 Infant Weight (lb): 5 Infant Weight (oz): 6 Length (in): 20.00 Infant Length (cm): 50.80 CORD INFORMATION BABY A No. Cord Vessels: 3 Nuchal Cord : Around Neck x2, Loose Nuchal Cord- Other: nuchal with hand cord Cord Blood Taken: Yes-For Storage (Mom's Blood type +) ASSESSMENT BABY A Skin to Skin: Yes BABY B INFORMATION : N/A SIGNATURES : I was personally available for consultation and serving as supervising physician for the MLP.
[2020-04-27] MEDS: LABETALOL HCL 200 MG TABLET PO SCH ×3 (05:01→21:00)
[2020-04-27] MEDS: CEFAZOLIN 1 GM/D5W RTU 1 GM/50 ML RTUPB IV SCH ×3 (05:05→17:38)
[2020-04-27 07:17] LABS: HEMATOCRIT 31.3 % (36.0-47.0); HEMOGLOBIN 10.5 g/dL (12.0-15.5); MEAN CORPUSCULAR HGB CONC 33.5 g/dL (32.0-36.0); MEAN CORPUSCULAR VOLUME 86 fl (80-97); PLATELET COUNT 172 10^3/uL (150-450); RED BLOOD COUNT 3.62 10^6/uL (3.72-5.28); RED CELL DISTRIBUTION WIDTH 15.2 % (11.5-14.0); WHITE BLOOD COUNT 11.5 10^3/uL (4.0-10.5)
--- NOTE | 2020-04-27 09:20 | PDOC PROGRESS REPORT ---
Subjective-OB Progress Note for:: 04/27/20 Subjective: Pt doing well, no concerns. FC removed, has not been OOB to bathroom yet. Reports normal bleeding, reg diet, no flatus yet. Pain is well controlled. Physical Exam (OB) Vital Signs: Temp Pulse Resp BP Pulse Ox 98.2 F 82 18 117/55 L 94 04/27/20 07:33 04/27/20 07:33 04/27/20 07:33 04/27/20 07:33 04/27/20 07:33 Intake & Output 04/26/20 04/27/20 04/28/20 06:59 06:59 06:59 Intake Total 100 665 Output Total 2500 Balance -2400 665 Weight 116.6 kg - PIH/Pre-Eclampsia Headache: Absent Epigastric Pain: No - Incision: Well Approximated Closure Type: Dermabond - Maternal Morbidity 59. Maternal Morbidity (serious complications experinced by the mother associated with labor and delivery: None of the above - Lochia Lochia Amount: Scant < 10 ml Lochia Color: Rubra/Red - Abdomen Description: Soft, Round Hernia Present: No Fundal Description: Firm, Midline Fundal Height: u/u - u/2 Objective-Diagnostic Laboratory: 04/27/20 06:45 04/26/20 10:16 04/26/20 04/26/20 04/27/20 10:16 10:16 06:45 WBC 9.6 11.5 H RBC 4.17 3.62 L Hgb 12.0 10.5 L Hct 36.2 31.3 L MCV 87 86 MCH 28.7 29.0 MCHC 33.1 33.5 RDW 15.3 H 15.2 H Plt Count 192 172 Seg Neutrophils % 72.7 Sodium 134.1 L Potassium 4.1 Chloride 105 Carbon Dioxide 25 Anion Gap 4 L BUN 8 Creatinine 0.48 L Est GFR ( Amer) > 60 Glucose 104 Uric Acid 4.9 Calcium 9.0 Total Bilirubin 0.3 AST 16 Alkaline Phosphatase 87 Total Protein 6.4 Albumin 3.2 L Assessment and Plan(PN) - Assessment and Plan (1) Prolapse of cord complicating labor and delivery Qualifiers: Fetus number: single or unspecified fetus Qualified Code(s): O69.0XX0 - Labor and delivery complicated by prolapse of cord, not applicable or unspecified Is this a current diagnosis for this admission?: Yes (2) Status post primary low transverse section Is this a current diagnosis for this admission?: Yes (3) Acute blood loss anemia Is this a current diagnosis for this admission?: Yes (4) Chronic hypertension affecting Is this a current diagnosis for this admission?: Yes (5) Gestational diabetes mellitus (GDM) Qualifiers: Gestational diabetes mellitus control: diet-controlled Trimester: third trimester Qualified Code(s): O24.410 - Gestational diabetes mellitus in , diet controlled Is this a current diagnosis for this admission?: Yes - Time Spent with Patient Time with patient: Less than 15 minutes Medications reviewed and adjusted accordingly: Yes - Disposition Anticipated Discharge Disposition: Home, Self Care Anticipated Discharge Timeframe: within 48 hours
[2020-04-27] MEDS: NIFEDIPINE 30 MG TAB.ER.24 PO SCH ×2 (10:20→21:00)
[2020-04-27] MEDS: DOCUSATE SODIUM 100 MG CAPSULE PO SCH ×2 (10:20→17:42)
[2020-04-27] MEDS: IBUPROFEN 800 MG TABLET PO SCH ×3 (10:22→21:01)
[2020-04-27] MEDS: SERTRALINE HCL 50 MG TABLET PO SCH (10:23)
[2020-04-27] MEDS: PRENATAL VITAMIN W DHA CAPSULE PO SCH (10:28)
[2020-04-27] MEDS: PENICILLIN G POTASSIUM 2,500,000 UNIT in DEXTROSE 5%-WATER 50 ML IV SCH (20:19)
[2020-04-27] MEDS: SIMETHICONE 80 MG TAB.CHEW PO PRN (21:00)
[2020-04-28] MEDS: OXYCODONE-ACETAMINOPHEN 5-325 MG TABLET PO PRN ×3 (02:37→11:05)
[2020-04-28] MEDS: IBUPROFEN 800 MG TABLET PO SCH ×2 (04:07→09:11)
[2020-04-28] MEDS: LABETALOL HCL 200 MG TABLET PO SCH (05:19)
[2020-04-28] MEDS: SIMETHICONE 80 MG TAB.CHEW PO PRN ×2 (05:22→11:04)
[2020-04-28 07:31] VITALS: BP 142/80
[2020-04-28] MEDS: NIFEDIPINE 30 MG TAB.ER.24 PO SCH (09:10)
[2020-04-28] MEDS: DOCUSATE SODIUM 100 MG CAPSULE PO SCH (09:10)
[2020-04-28] MEDS: PRENATAL VITAMIN W DHA CAPSULE PO SCH (09:10)
[2020-04-28] MEDS: SERTRALINE HCL 50 MG TABLET PO SCH (09:10)
--- NOTE | 2020-04-28 09:46 | PDOC DISCHARGE SUMMARY ---
Impression - Admit/DC Date/PCP Admission Date/Primary Care Provider: 04/25/20 22:42 REID PICKERING MD Discharge Date: 04/28/20 - Discharge Diagnosis (1) Prolapse of cord complicating labor and delivery Is this a current diagnosis for this admission?: Yes (2) Status post primary low transverse section Is this a current diagnosis for this admission?: Yes (3) Acute blood loss anemia Is this a current diagnosis for this admission?: Yes (4) Chronic hypertension affecting Is this a current diagnosis for this admission?: Yes (5) Gestational diabetes mellitus (GDM) Is this a current diagnosis for this admission?: Yes - Additional Information Resuscitation Status: Full Code Discharge Diet: Regular Discharge Activity: Balance Activity w/Rest, No Lifting Over 10 Pounds, No Lifting/Push/Pulling, Pelvic Rest, Slowly Increase Activity, No tub bath Referrals: REID PICKERING MD [Primary Care Provider] - Prescriptions: Oxycodone HCl/Acetaminophen [Percocet 5-325 mg Tablet] 1 tab PO Q4HP PRN #30 tablet PRN Reason: For Pain Scale 3-5 Ibuprofen [Motrin 800 mg Tablet] 800 mg PO Q8HP PRN #60 tablet PRN Reason: Home Medications: Labetalol HCl 200 mg PO TID 02/09/18 No122/Iron/Folic Acid [ Multi Tablet] 1 tab PO DAILY 02/09/18 Ferrous Sulfate [Feosol 325 mg Tablet] 325 mg PO BID #60 tablet 02/28/18 Metformin HCl 1 tab PO DAILY 04/12/20 Nifedipine [Procardia XL 30 mg Tablet] 1 tab PO DAILY 04/12/20 Sertraline HCl 1 tab PO DAILY 04/12/20 Ibuprofen [Motrin 800 mg Tablet] 800 mg PO Q8HP PRN #60 tablet 04/28/20 Oxycodone HCl/Acetaminophen [Percocet 5-325 mg Tablet] 1 tab PO Q4HP PRN #30 tablet 04/28/20 HPI Gestational Age: 38 Reason(s) for Admission: Induction of Labor, PIH, Gestional Diabetes Procedures: NST, Management of Obstetric Complications Intrapartum Procedure(s): : Low Cervical, Transverse Hospital Course 59. Maternal Morbidity (serious complications experinced by the mother associated with labor and delivery: None of the above Results Laboratory Results: WBC 11.5 10^3/uL (4.0-10.5) H 04/27/20 06:45 RBC 3.62 10^6/uL (3.72-5.28) L 04/27/20 06:45 Hgb 10.5 g/dL (12.0-15.5) L 04/27/20 06:45 Hct 31.3 % (36.0-47.0) L 04/27/20 06:45 MCV 86 fl (80-97) 04/27/20 06:45 MCH 29.0 pg (27.0-33.4) 04/27/20 06:45 MCHC 33.5 g/dL (32.0-36.0) 04/27/20 06:45 RDW 15.2 % (11.5-14.0) H 04/27/20 06:45 Plt Count 172 10^3/uL (150-450) 04/27/20 06:45 Lymph % (Auto) 19.6 % (13-45) 04/26/20 10:16 [place] % (Auto) 7.3 % (3-13) 04/26/20 10:16 Eos % (Auto) 0.3 % (0-6) 04/26/20 10:16 Baso % (Auto) 0.1 % (0-2) 04/26/20 10:16 Absolute Neuts (auto) 7.0 10^3/uL (1.7-8.2) 04/26/20 10:16 Absolute Lymphs (auto) 1.9 10^3/uL (0.5-4.7) 04/26/20 10:16 Absolute Monos (auto) 0.7 10^3/uL (0.1-1.4) 04/26/20 10:16 Absolute Eos (auto) 0.0 10^3/uL (0.0-0.6) 04/26/20 10:16 Absolute Basos (auto) 0.0 10^3/uL (0.0-0.2) 04/26/20 10:16 Seg Neutrophils % 72.7 % (42-78) 04/26/20 10:16 Sodium 134.1 mmol/L (137-145) L 04/26/20 10:16 Potassium 4.1 mmol/L (3.6-5.0) 04/26/20 10:16 Chloride 105 mmol/L (98-107) 04/26/20 10:16 Carbon Dioxide 25 mmol/L (22-30) 04/26/20 10:16 Anion Gap 4 (5-19) L 04/26/20 10:16 BUN 8 mg/dL (7-20) 04/26/20 10:16 Creatinine 0.48 mg/dL (0.52-1.25) L 04/26/20 10:16 Est GFR ( Amer) > 60 (>60) 04/26/20 10:16 Est GFR (MDRD) Non-Af > 60 (>60) 04/26/20 10:16 Glucose 104 mg/dL (75-110) 04/26/20 10:16 Uric Acid 4.9 mg/dL (2.5-6.2) 04/26/20 10:16 Calcium 9.0 mg/dL (8.4-10.2) 04/26/20 10:16 Total Bilirubin 0.3 mg/dL (0.2-1.3) 04/26/20 10:16 Direct Bilirubin 0.0 mg/dL (0.0-0.4) 04/26/20 10:16 Neonat Total Bilirubin Not Reportable 04/26/20 10:16 Neonat Direct Bilirubin Not Reportable 04/26/20 10:16 Neonat Indirect Bili Not Reportable 04/26/20 10:16 AST 16 U/L (14-36) 04/26/20 10:16 ALT 12 U/L (<35) 04/26/20 10:16 Alkaline Phosphatase 87 U/L (38-126) 04/26/20 10:16 Lactate Dehydrogenase 119 U/L (120-246) L 04/26/20 10:16 Total Protein 6.4 g/dL (6.3-8.2) 04/26/20 10:16 Albumin 3.2 g/dL (3.5-5.0) L 04/26/20 10:16 Urine Color YELLOW 04/25/20 23:35 Urine Appearance SLIGHTLY-CLOUDY 04/25/20 23:35 Urine pH 5.0 (5.0-9.0) 04/25/20 23:35 Ur Specific [place] 1.026 04/25/20 23:35 Urine Protein 30 mg/dL (NEGATIVE) H 04/25/20 23:35 Urine Glucose (UA) NEGATIVE mg/dL (NEGATIVE) 04/25/20 23:35 Urine Ketones TRACE mg/dL (NEGATIVE) H 04/25/20 23:35 Urine Blood SMALL (NEGATIVE) H 04/25/20 23:35 Urine Nitrite NEGATIVE (NEGATIVE) 04/25/20 23:35 Urine Bilirubin NEGATIVE (NEGATIVE) 04/25/20 23:35 Urine Urobilinogen NEGATIVE mg/dL (<2.0) 04/25/20 23:35 Ur Leukocyte Esterase NEGATIVE (NEGATIVE) 04/25/20 23:35 Urine WBC (Auto) 2 /HPF 04/25/20 23:35 Urine RBC (Auto) 0 /HPF 04/25/20 23:35 U Hyaline Cast (Auto) 2 /LPF 04/25/20 23:35 Urine Bacteria (Auto) 1+ /HPF 04/25/20 23:35 Squamous Epi Cells Auto 1 /HPF 04/25/20 23:35 Urine Mucus (Auto) FEW /LPF 04/25/20 23:35 Urine Ascorbic Acid NEGATIVE (NEGATIVE) 04/25/20 23:35 Urine Opiates Screen NEGATIVE 04/25/20 23:35 Urine Methadone Screen NEGATIVE 04/25/20 23:35 Ur Barbiturates Screen NEGATIVE 04/25/20 23:35 Ur Phencyclidine Scrn NEGATIVE 04/25/20 23:35 Ur Amphetamines Screen NEGATIVE 04/25/20 23:35 U Benzodiazepines Scrn NEGATIVE 04/25/20 23:35 Urine Cocaine Screen NEGATIVE 04/25/20 23:35 U Marijuana (THC) Screen NEGATIVE 04/25/20 23:35 RPR NONREACTIVE (NONREACTIVE) 04/25/20 23:00 Blood Type A POSITIVE 04/25/20 23:00 Antibody Screen NEGATIVE 04/25/20 23:00 Plan Plan of Treatment: f/u at [facility] for BP check and Incision check on Wednesday Time Spent: Less than 30 Minutes
== END 2020-04-28 13:00 | disposition home or self-care (01) | DRG 787 ==
LOC: LR 22:42 → 2N 04-26 21:45
PROVIDERS: ADMIT Obstetrics & Gynecology; ATTEND Obstetrics & Gynecology
PROC: 10D00Z1 Extraction of Products of Conception, Low, Open Approach (ICD-10-PCS; principal; 2020-04-26)
PROC: 3E033VJ Introduction of Other Hormone into Peripheral Vein, Percutaneous Approach (ICD-10-PCS; 2020-04-26)
PROC: 10907ZC Drainage of Amniotic Fluid, Therapeutic from Products of Conception, Via Natural or Artificial Opening (ICD-10-PCS; 2020-04-26)
DX: O10.02 Pre-existing essential hypertension complicating childbirth (principal); D62 Acute posthemorrhagic anemia; O24.425 Gestational diabetes mellitus in childbirth, controlled by oral hypoglycemic drugs; O69.0XX0 Labor and delivery complicated by prolapse of cord, not applicable or unspecified; O99.02 Anemia complicating childbirth; O99.824 Streptococcus B carrier state complicating childbirth; O99.214 Obesity complicating childbirth; O69.81X0 Labor and delivery complicated by cord around neck, without compression, not applicable or unspecified; O76 Abnormality in fetal heart rate and rhythm complicating labor and delivery; E66.9 Obesity, unspecified; Z11.59 Encounter for screening for other viral diseases; Z88.6 Allergy status to analgesic agent; Z3A.38 38 weeks gestation of pregnancy; Z37.0 Single live birth
CPT/HCPCS: 1967; 1968; 36415; 80053; 80307; 81001; 83615; 84550; 85025; 85027; 86592; 86850; 86900; 86901; 88307; 94760; 94799; 99140; C1758; J0131; J0360; J0690; J1170; J1885; J2250; J2270; J2300; J2370; J2405; J2540; J2590; J2704; J2795; J3010; J3490; J7060; J7120